=== PATIENT | female | born 1995 | race Caucasian/White ===

== ENCOUNTER 2017-03-04 10:35 | Inpatient (IN) | payer BC ==
[~2017-03-04] VITALS: Ht 160 cm; Wt 53.3 kg
[2017-03-04] MEDS ORDERED: NAPR500T3 PO (11:17)
[2017-03-04] MEDS ORDERED: MELA1TAB5 PO (11:17)
[2017-03-04] MEDS ORDERED: LEVE500T13 PO ×2 (11:17)
[2017-03-04] MEDS ORDERED: [UNRECOGNIZED DRUG - CODE] PO (11:17)
[2017-03-04] MEDS ORDERED: BIOTCAP2 PO (11:17)
[2017-03-04] MEDS ORDERED: CETI10TA84 PO (11:17)
[2017-03-04] MEDS ORDERED: MULT-240 PO (11:17)
[2017-03-04] MEDS ORDERED: CALCCAP15 PO (11:17)
[2017-03-04] MEDS ORDERED: CLON0.5T3 PO (11:17)
[2017-03-04] MEDS ORDERED: CHOL1000 PO (11:21)
[2017-03-04] MEDS ORDERED: CLON1TAB3 PO (11:21)
[2017-03-04 11:49] LABS: BASO % 0.1 %; BASO ABS # 0.02 K/uL (0-0.2); COMPLETE YES; EOS % 0.1 %; HEMATOCRIT 44.4 % (37-47); IG% 0.3 %; LYMPH % 5.3 %; LYMPH ABS # 0.92 K/uL (1.2-3.4); MEAN CELL VOLUME 89.7 fL (80-100); MEAN CORPUSCULAR HEMOGLOBIN 30.7 pg (25-34); MEAN CORPUSCULAR HGB CONC 34.2 g/dl (32-36); MEAN PLATELET VOLUME 9.3 fL (7.4-10.4); MONO % 7.2 %; PLATELET COUNT 295 K/uL (130-400); RED BLOOD COUNT 4.95 M/uL (4.2-5.4); WHITE BLOOD COUNT 17.24 K/uL (4.8-10.8)
[2017-03-04 11:58] LABS: BUN/CREATININE RATIO 13.1 (10-20); CALCIUM 8.9 mg/dl (8.5-10.1); CREATININE 0.87 mg/dl (0.60-1.20); POTASSIUM 3.3 mmol/L (3.5-5.1)
[2017-03-04 12:01] LABS: ALB/GLOB RATIO 0.9 (0.9-2)
[2017-03-04] MEDS ORDERED: ACETAMINOPHEN 500 MG TAB PO STA (12:18)
--- NOTE | 2017-03-04 12:35 | DIAGNOSTIC IMAGING REPORT ---
CHEST ONE VIEW PORTABLE HISTORY: 21 years-old Female fever acute fever with cough and headache COMPARISON: None available TECHNIQUE: Portable upright AP view of the chest FINDINGS: Cardiac silhouette is within normal limits. No pneumothorax, pleural effusion, focal airspace consolidation or overt pulmonary edema. Battery stimulator pack overlies the left chest with leads overlying the left upper hemithorax. Bones appear grossly intact. IMPRESSION: No acute cardiopulmonary process. The above report was generated using voice recognition software. It may contain grammatical, syntax or spelling errors. Electronically signed by: Diogo Gil M.D. 03/04/2017 12:34 PM Dictated Date/Time: 03/04/2017 12:33 PM
--- NOTE | 2017-03-04 12:43 | EMERGENCY ROOM VISIT NOTE ---
History Report prepared by Grant: Matthew Hamilton Under the Supervision of: Dr. Andrzej Law M.D. First contact with patient: 12:02 Chief Complaint: SEIZURE Stated Complaint: HIGH FEVER, HEADACHES, COUGH, SORE THROAT,SEIZURE Nursing Triage Summary: Pt states that she had a seizure this morning around 0800. Pt did take her medication today. Pt states that she does have a seizure disorder. Normally she has a seizure once a month. Since starting school the pt is having more seizures. Pt states that the seizures are also changing. She used to turn her head to the left but now is turning to the right. Over the last week the pt has also been sick. Pt states she has congestion, cough, and fever. History of Present Illness The patient is a 21 year old female who presents to the Emergency Room with complaints of episodic seizure that occurred four hours EXERCISE PHYSIOLOGIST CERTIFIED. She reports vomiting during her seizure. She notes that she has been sick for 6 weeks. She reports that she recently had pneumonia. She notes having a persistent fever and sore throat with a persistent cough. She has a history of seizures two to three times a month. She is on Banzel, Keppra, and Clonazepam daily for her seizures. She has gone to [facility] ([facility]) several times in the last month and was there today, but was advised to come to the ED. She notes her fevers have been 104.3, 101.0 over the last two days and today it was 99.0. Her roommate notes that her seizures have been abnormal and longer than usual, lasting three minutes at a time. The patient notes the [facility] had prescribed her penicillin and Omnicef, which she completed taking four days ago. She notes having a loss of appetite due to nausea, but states that she has been drinking fluids. She denies any abdominal pain, shortness of breath, incontinence. She notes that she was confused following the episode, and bit her tongue during it. Source of History: patient Onset: Four hours EXERCISE PHYSIOLOGIST CERTIFIED Position: other (generalized) Quality: other (seizure) Timing: other (episode) Associated Symptoms: + fevers, + sorethroat, + cough, No SOB, No abdominal pain Note: The patient denies incontinence. Review of Systems All systems have been listed, reviewed, and are negative other than those previously mentioned. Please see Additional Medical History Sheet. Past Medical & Surgical Medical Problems: (1) Asthma (2) Seizure Family History Diabetes mellitus FH: HTN (hypertension) FH: cancer FH: kidney disease FH: lung disease FHx: seizures Heart disease Social History Smoking Status: Never Smoker Smokeless Tobacco Use: No Alcohol Use: none Housing Status: lives with roommate Occupation Status: student Current/Historical Medications Scheduled Biotin (Biotin 5000), 1 CAP PO DAILY Calcium Carbonate-Cholecalcife (Calcium Plus Vitamin D3), 2 CAP PO DAILY Cetirizine (Zyrtec), 10 MG PO DAILY Cholecalciferol (Vitamin D3), 1 TAB PO DAILY Clonazepam (Klonopin), 0.5 MG PO HS Clonazepam (Klonopin), PO UD Levetiracetam (Keppra), 3 TAB PO QAM Levetiracetam (Keppra), 4 TAB PO QPM Multiple Vitamins W/ Minerals (Womens One Daily), 1 TAB PO DAILY Naproxen (Naproxen), 1 TAB PO BID Rufinamide (Banzel), 1 TAB PO UD Scheduled PRN Melatonin (Kp Melatonin), 1 TAB PO HS PRN for Sleep Allergies Coded Allergies: Azithromycin (Unverified Allergy, Severe, "SKIN FELT SUNBURNED", 03/04/17) Peanut (Unverified Allergy, Severe, ANAPHYLAXIS, 03/04/17) Physical Exam Vital Signs Date Time Temp Pulse Resp B/P (MAP) Pulse Ox O2 Delivery O2 Flow Rate FiO2 03/04/17 15:17 76 20 104/68 96 Room Air 03/04/17 12:23 109 19 98/67 98 Room Air 03/04/17 11:06 110 03/04/17 10:39 38.3 114 16 103/68 96 Room Air Physical Exam GENERAL: Patient awake, alert, oriented x 3. Patient follows commands. Patient does not appear toxic. Patient is adequately hydrated and well- nourished. SKIN: No erythema, pallor, cyanosis. Warm to touch. No rashes. HEENT: Normal head, pupils equal, reactive to light and accommodation. Ears normal. Significant pharyngeal erythema and pus to the oropharynx. Neck: Bilaterally cervical adenopathy, no neck vein distention. Bruise on left side of tongue. CHEST: Stimulator in left upper chest. LUNGS: Clear to auscultation. No wheezes, no rales, no rhonchi. HEART: No murmurs. No gallops. No rubs ABDOMEN: No masses, no rebound, no hepatomegaly or splenomegaly. EXTREMITIES: No signs of trauma. No pedal or pretibial edema. No calf or thigh tenderness. SKIN: Warm to touch. No rashes. NEUROLOGIC: Cranial nerves II-XII within normal limits. No gross motor sensory function deficits. Medical Decision & Procedures ER Provider Diagnostic Interpretation: X ray results are stated below per my interpretation and the radiologist's interpretation. CHEST ONE VIEW PORTABLE FINDINGS: Cardiac silhouette is within normal limits. No pneumothorax, pleural effusion, focal airspace consolidation or overt pulmonary edema. Battery stimulator pack overlies the left chest with leads overlying the left upper hemithorax. Bones appear grossly intact. IMPRESSION: No acute cardiopulmonary process. The above report was generated using voice recognition software. It may contain grammatical, syntax or spelling errors. Electronically signed by: Diogo Gil M.D. 03/04/2017 12:34 PM Laboratory Results 03/04/17 11:00 Red Blood Count 4.95, Mean Corpuscular Volume 89.7, Mean Corpuscular Hemoglobin 30.7, Mean Corpuscular Hemoglobin Concent 34.2, Mean Platelet Volume 9.3, Neutrophils (%) (Auto) 87.0, Lymphocytes (%) (Auto) 5.3, Monocytes (%) (Auto) 7.2, Eosinophils (%) (Auto) 0.1, Basophils (%) (Auto) 0.1, Neutrophils # (Auto) 14.99, Lymphocytes # (Auto) 0.92, Monocytes # (Auto) 1.24, Eosinophils # (Auto) 0.01, Basophils # (Auto) 0.02 03/04/17 11:00 Test 03/04/17 11:00 03/04/17 14:05 03/04/17 14:30 03/04/17 16:18 White Blood Count 17.24 K/uL (4.8-10.8) Red Blood Count 4.95 M/uL (4.2-5.4) Hemoglobin 15.2 g/dL (12.0-16.0) Hematocrit 44.4 % (37-47) Mean Corpuscular Volume 89.7 fL (80-100) Mean Corpuscular Hemoglobin 30.7 pg (25-34) Mean Corpuscular Hemoglobin Concent 34.2 g/dl (32-36) Platelet Count 295 K/uL (130-400) Mean Platelet Volume 9.3 fL (7.4-10.4) Neutrophils (%) (Auto) 87.0 % Lymphocytes (%) (Auto) 5.3 % Monocytes (%) (Auto) 7.2 % Eosinophils (%) (Auto) 0.1 % Basophils (%) (Auto) 0.1 % Neutrophils # (Auto) 14.99 K/uL (1.4-6.5) Lymphocytes # (Auto) 0.92 K/uL (1.2-3.4) Monocytes # (Auto) 1.24 K/uL (0.11-0.59) Eosinophils # (Auto) 0.01 K/uL (0-0.5) Basophils # (Auto) 0.02 K/uL (0-0.2) RDW Standard Deviation 41.0 fL (36.4-46.3) RDW Coefficient of Variation 12.6 % (11.5-14.5) Immature Granulocyte % (Auto) 0.3 % Immature Granulocyte # (Auto) 0.06 K/uL (0.00-0.02) Anion Gap 9.0 mmol/L (3-11) Est Creatinine Clear Calc Drug Dose 86.0 ml/min Estimated GFR () 111.9 Estimated GFR (Non- 96.6 BUN/Creatinine Ratio 13.1 (10-20) Calcium Level 8.9 mg/dl (8.5-10.1) Total Bilirubin 0.3 mg/dl (0.2-1) Aspartate Amino Transf (AST/SGOT) 22 U/L (15-37) Alanine Aminotransferase (ALT/SGPT) 25 U/L (12-78) Alkaline Phosphatase 84 U/L (45-117) Total Protein 9.3 gm/dl (6.4-8.2) Albumin 4.5 gm/dl (3.4-5.0) Globulin 4.8 gm/dl (2.5-4.0) Albumin/Globulin Ratio 0.9 (0.9-2) Monoscreen NEG (NEG) Urine Color YELLOW Urine Appearance CLEAR (CLEAR) Urine pH 6.5 (4.5-7.5) Urine Specific [place] 1.017 (1.000-1.030) Urine Protein NEG (NEG) Urine Glucose (UA) NEG (NEG) Urine Ketones NEG (NEG) Urine Occult Blood TRACE (NEG) Urine Nitrite NEG (NEG) Urine Bilirubin NEG (NEG) Urine Urobilinogen NEG (NEG) Urine Leukocyte Esterase SMALL (NEG) Urine WBC (Auto) 5-10 /hpf (0-5) Urine RBC (Auto) 5-10 /hpf (0-4) Urine Hyaline Casts (Auto) 1-5 /lpf (0-5) Urine Epithelial Cells (Auto) >30 /lpf (0-5) Urine Bacteria (Auto) NEG (NEG) Urine Renal Epithelial Cells 0-5 /lpf (0-5) Urine Yeast (Auto) PRESENT (NONE PRSENT) Urine Test NEG (NEG) CSF Color COLORLESS CSF Appearance CLEAR CSF WBC 0 /uL (0-5) CSF RBC 0 /uL (0) CSF Xanthrochromic NO XANTHOCHROMIA CSF Cell Count Tube # 4 CSF Glucose 58 mg/dl (40-70) CSF Total Protein 30.1 mg/dl (15.0-45.0) Laboratory results as stated above per my review. Medications Administered Medications (Trade) Dose Ordered Sig/Prasanth Route Start Time Stop Time Status Last Admin Dose Admin Acetaminophen (Tylenol Tab) 1,000 mg NOW STAT PO 03/04/17 12:18 03/04/17 12:19 DC 03/04/17 12:24 1,000 MG Procedure Lumbar Puncture Indication: fever, headache, elevated WBC, and seizure Verbal consent was obtained after the risks and benefits were explained, including but not limited to headache, bleeding/clotting, scarring, infection, pain, and bone/joint/nerve damage. At this time, the risks of the procedure are less than the risks of NOT performing the procedure. The patient was placed in the left lateral decubitus position and the back was prepped with Betadine and draped in the standard fashion. The L3 intervertebral space was identified, anesthetized locally with 1% lidocaine without epinephrine. A 22G Sprotte spinal needle was inserted through the skin with the bevel parallel to the dural fibers. The needle was carefully advanced into the lumbar cistern, but no fluid was obtained; therefore, a 20G regular needle was used and 4 tubes of clear, colorless CSF was obtained. Opening pressure was 9cm of water and closing pressure was 8.5 cm of water. The stylet was replaced and the needle was removed. A bandaid was placed and the patient was placed in the supine position. The patient tolerated the procedure well and there were no complications. ED Course 1202: Past medical records reviewed. The patient was evaluated in room C9. A complete history and physical examination was performed. 1219: Ordered Tylenol 1,000 mg PO 1354 I reassessed the patient at this time. She is feeling better and resting comfortably. 1406: I performed a lumbar puncture on the patient. Please see procedural note. Medical Decision Nurses notes reviewed. Medical history sheet reviewed. Differential diagnosis includes but is not limited to: viral infection, bacterial infection: PNA, Streptococcus pharyngitis, mononucleosis, and seizure disorder. The patient arrives here with fever elevated white count and a seizure this morning. She does have an underlying seizure disorder. Patient also complained of a significant headache and very sore throat. Strep test was negative although she was on antibiotics up to 4 days ago. Chest x-ray does not reveal pneumonia. Lumbar puncture was performed to rule out the possibility of meningitis/encephalitis especially in light of her high fever or white count and seizure this morning. Patient continued to have significant distress. She was given IV fluids and IV doxycycline as per request of the hospitalist. The patient will be further evaluated in the hospital. Medication Reconcilliation Current Medication List: was personally reviewed by me Blood Pressure Screening Patient's blood pressure: Normal blood pressure Blood pressure disposition: Did not require urgent referral Consults Time Called: 1620 Consulting Physician: Kindra Returned Call: [phone] Start patient on IV doxycycline. Impression Primary Impression: Leukocytosis Additional Impressions: Fever Pharyngitis Hypokalemia Scribe Attestation The scribe's documentation has been prepared under my direction and personally reviewed by me in its entirety. I confirm that the note above accurately reflects all work, treatment, procedures, and medical decision making performed by me. Departure Information Referrals No Doctor, Assigned (PCP) Patient Instructions My [facility] Problem Qualifiers
[2017-03-04 14:28] LABS: URINE APPEARANCE CLEAR (CLEAR); URINE BILIRUBIN NEG (NEG); URINE COLOR YELLOW; URINE EPITHELIAL CELL AUTO >30 /lpf (0-5); URINE NITRITE NEG (NEG); URINE PH 6.5 (4.5-7.5); URINE SPECIFIC GRAVITY 1.017 (1.000-1.030); UROBILINOGEN NEG (NEG); ZZUR CULT IF INDIC CLEAN CATCH YES
[2017-03-04 14:29] LABS: MANUAL MICROSCOPIC REQUIRED? NO; REVIEW REQ? YES
[2017-03-04 15:09] LABS: CSF APPEARANCE CLEAR; CSF COLOR COLORLESS; CSF XANTHOCHROMIC NO XANTHOCHROMIA
[2017-03-04 15:24] LABS: CSF TOTAL PROTEIN 30.1 mg/dl (15.0-45.0)
[2017-03-04] MEDS ORDERED: SODIUM CHLORIDE 0.9% 1000ML 1,000 ML IV ONE (16:30)
[2017-03-04] MEDS ORDERED: DOXYCYCLINE IV 100 MG in DEXTROSE 5% 100ML 100 ML IV ONE (16:30)
[2017-03-04 16:59] VITALS: O2SAT 97; Ht 160 cm; Wt 53.3 kg
[2017-03-04] MEDS ORDERED: ALUMINUM/MAGNESIUM/SIMETH (MAALOX MAX) 30 ML UDC PO PRN (18:30)
[2017-03-04] MEDS ORDERED: POLYETHYLENE (MIRALAX) 17 GM PACK PO PRN (18:30)
[2017-03-04] MEDS ORDERED: MAGNESIUM HYDROXIDE SUSP 30 ML UDC PO PRN (18:30)
[2017-03-04] MEDS ORDERED: ONDANSETRON INJ 2 MG/ML 2 ML VIAL IV PRN (18:30)
[2017-03-04] MEDS ORDERED: OPTIRAY 320 IV PRN (18:45)
[2017-03-04] MEDS ORDERED: POLY335019 PO (18:56)
[2017-03-04] MEDS ORDERED: MIRT15TA3 PO (18:56)
[2017-03-04] MEDS ORDERED: LEVO50TA PO (18:56)
[2017-03-04] MEDS ORDERED: RUFI400T PO (18:56)
[2017-03-04] MEDS ORDERED: VENL75CA PO (18:56)
[2017-03-04] MEDS ORDERED: SYMIN/8045 INH (18:56)
[2017-03-04] MEDS ORDERED: MRN25 PO (18:56)
[2017-03-04] MEDS ORDERED: MONT1TAB3 PO (18:56)
[2017-03-04] MEDS ORDERED: LEVOIUD (18:56)
--- NOTE | 2017-03-04 18:57 | History and Physical ---
History & Physical Date & Time of Service: Mar 04, 2017 at 18:57 Chief Complaint: High Fever, Headaches, Cough, Sore Throat,Seizure Primary Care Physician: [facility] History of Present Illness Source: patient, friend (roommate) Ms. 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 Patient normally has seizures monthly however now has them approx 3-4 times a month since starting school. She does report that sleep deprivation and stress increases her seizures which correlates with being a college student. She had a seizure around 0800 this AM and lasted approx. 3 minutes per roommate. Had associated vomiting and did bite her tongue. She states that post-ictal state was more prolonged then what she has seen this patient have in the past. It was approximately 30-45 minutes but she was more confused then she normally is. She appeared to have a glazed-over look and they were concerned she might have another seizure. Roommate states she has not had status epilepticus that she has witnessed. Patient and roommate state that the seizures have been changing with the example of her head turns to the right now instead of the left. Patient states the majority of her seizures are grand mal but does occ. have partial seizures that she is aware of. She follows with [facility] for her neurologist (Dr. Gaxiola and Dr. Arrington). She resides in [place], [place]. She had a VNS placed prior to arriving to school and reports it appears to be pushing into her skin more and does cause some discomfort. She is currently on Banzel, Keppra, and Clonazepam. She reports her Banzel was increased approx 1 week ago to 800 mg in AM and 1200 mg PM. She reports having a URI including cough and sore throat x 6 weeks. Also complaining of generalized fatigue and body aches. She has noticed fevers over the past month but more specifically over the past three days. Max temp was 104.3 and today was 99. She was recently treated with a course of Penicillin and Omnicef for presumed pneumonia but continues to have fevers. Completed Abx could x 4 days ago. She does have associated poor appetite due to nausea. She chronically has had issues gaining weight and has been on Marinol PRN. Roommates at bedside and avoided asking if she has had any underlying eating disorders. Past Medical/Surgical History 1. Seizure Disorder 2. Hypothyroidism 3. Anxiety/Depression 4. Poor Appetite/Poor Weight Gain 5. Asthma Family History Diabetes mellitus FH: HTN (hypertension) FH: cancer FH: kidney disease FH: lung disease FHx: seizures Heart disease Social History Smoking Status: Never Smoker Smokeless Tobacco Use: No Alcohol Use: none Drug Use: none Occupational Status: student Allergies Coded Allergies: Azithromycin (Unverified Allergy, Severe, "SKIN FELT SUNBURNED", 03/04/17) Peanut (Unverified Allergy, Severe, ANAPHYLAXIS, 03/04/17) Home Medications Scheduled Biotin (Biotin 5000), 1 CAP PO DAILY Budesonide/Formoterol Fumarate (Symbicort 80/4.5 Inhaler), 2 PUFFS INH BID Calcium Carbonate-Cholecalcife (Calcium Plus Vitamin D3), 2 CAP PO DAILY Cetirizine (Zyrtec), 10 MG PO DAILY Cholecalciferol (Vitamin D3), 1 TAB PO DAILY Clonazepam (Klonopin), 0.5 MG PO HS Clonazepam (Klonopin), PO UD Levetiracetam (Keppra), 3 TAB PO QAM Levetiracetam (Keppra), 4 TAB PO QPM Levothyroxine Sodium (Synthroid), 75 MCG PO DAILY Mirtazapine (Remeron), 1 TAB PO HS Montelukast Sodium (Singulair), 1 TAB PO DAILY Multiple Vitamins W/ Minerals (Womens One Daily), 1 TAB PO DAILY Naproxen (Naproxen), 1 TAB PO BID Polyethylene Glycol 3350 (Miralax), 17 GM PO DAILY Rufinamide (Banzel), 800 MG PO DAILY Rufinamide (Banzel), 1,200 MG PO DAILY Scheduled PRN Dronabinol (Dronabinol), 5 MG PO BID PRN for Appetite Stimulation Melatonin (Kp Melatonin), 1 TAB PO HS PRN for Sleep Miscellaneous Medications Levonorgestrel (Iud) (Mirena) Review of Systems Constitutional: + fever, + chills, + sweats, + weakness, + fatigue ENT: + nasal symptoms, + sore throat, No trouble swallowing Respiratory: + cough, No shortness of breath Cardiovascular: No chest pain, No palpitations Abdomen: + nausea, + vomiting, No pain, No diarrhea, No constipation, No GI bleeding Musculoskeletal: No swelling, No calf pain Genitourinary - Female: No dysuria Hematologic / Lymphatic: No abnormal bleeding/bruising Integumentary: No rash, No new/changing skin lesions Physical Exam Vital Signs Date Time Temp Pulse Resp B/P (MAP) Pulse Ox O2 Delivery O2 Flow Rate FiO2 03/04/17 17:07 90 20 100/60 97 Room Air 03/04/17 16:59 97 Room Air 03/04/17 15:17 76 20 104/68 96 Room Air 03/04/17 12:23 109 19 98/67 98 Room Air 03/04/17 11:06 110 03/04/17 10:39 38.3 114 16 103/68 96 Room Air General Appearance: no apparent distress, + thin, + pertinent finding ( lethargic but easily awakens) Head: normocephalic, atraumatic Eyes: normal inspection, PERRL, EOMI ENT: hearing grossly normal, + pharyngeal erythema, + tonsillar exudate Neck: supple, no JVD, trachea midline Respiratory/Chest: lungs clear, normal breath sounds, no respiratory distress, no accessory muscle use Cardiovascular: regular rate, rhythm, no gallop, no murmur Abdomen/GI: normal bowel sounds, non tender, soft Extremities/Musculoskelatal: no calf tenderness, no pedal edema Neurologic/Psych: alert, oriented x 3, + pertinent finding (drowsy) Skin: normal color, + pertinent finding (clammy) Lymphatic: + cervical node abnormality Diagnostics Laboratory Results Results Past 24 Hours Test 03/04/17 11:00 03/04/17 14:05 03/04/17 14:30 Range/Units White Blood Count 17.24 4.8-10.8 K/uL Red Blood Count 4.95 4.2-5.4 M/uL Hemoglobin 15.2 12.0-16.0 g/dL Hematocrit 44.4 37-47 % Mean Corpuscular Volume 89.7 80-100 fL Mean Corpuscular Hemoglobin 30.7 25-34 pg Mean Corpuscular Hemoglobin Concent 34.2 32-36 g/dl Platelet Count 295 130-400 K/uL Mean Platelet Volume 9.3 7.4-10.4 fL Neutrophils (%) (Auto) 87.0 % Lymphocytes (%) (Auto) 5.3 % Monocytes (%) (Auto) 7.2 % Eosinophils (%) (Auto) 0.1 % Basophils (%) (Auto) 0.1 % Neutrophils # (Auto) 14.99 1.4-6.5 K/uL Lymphocytes # (Auto) 0.92 1.2-3.4 K/uL Monocytes # (Auto) 1.24 0.11-0.59 K/uL Eosinophils # (Auto) 0.01 0-0.5 K/uL Basophils # (Auto) 0.02 0-0.2 K/uL RDW Standard Deviation 41.0 36.4-46.3 fL RDW Coefficient of Variation 12.6 11.5-14.5 % Immature Granulocyte % (Auto) 0.3 % Immature Granulocyte # (Auto) 0.06 0.00-0.02 K/uL Sodium Level 134 136-145 mmol/L Potassium Level 3.3 3.5-5.1 mmol/L Chloride Level 99 98-107 mmol/L Carbon Dioxide Level 26 21-32 mmol/L Anion Gap 9.0 3-11 mmol/L Blood Urea Nitrogen 11 7-18 mg/dl Creatinine 0.87 0.60-1.20 mg/dl Est Creatinine Clear Calc Drug Dose 86.0 ml/min Estimated GFR () 111.9 Estimated GFR (Non- 96.6 BUN/Creatinine Ratio 13.1 10-20 Random Glucose 89 70-99 mg/dl Calcium Level 8.9 8.5-10.1 mg/dl Total Bilirubin 0.3 0.2-1 mg/dl Aspartate Amino Transf (AST/SGOT) 22 15-37 U/L Alanine Aminotransferase (ALT/SGPT) 25 12-78 U/L Alkaline Phosphatase 84 45-117 U/L Total Protein 9.3 6.4-8.2 gm/dl Albumin 4.5 3.4-5.0 gm/dl Globulin 4.8 2.5-4.0 gm/dl Albumin/Globulin Ratio 0.9 0.9-2 Lyme Disease IgG Antibody NEG NEG Monoscreen NEG NEG Urine Color YELLOW Urine Appearance CLEAR CLEAR Urine pH 6.5 4.5-7.5 Urine Specific [place] 1.017 1.000-1.030 Urine Protein NEG NEG Urine Glucose (UA) NEG NEG Urine Ketones NEG NEG Urine Occult Blood TRACE NEG Urine Nitrite NEG NEG Urine Bilirubin NEG NEG Urine Urobilinogen NEG NEG Urine Leukocyte Esterase SMALL NEG Urine WBC (Auto) 5-10 0-5 /hpf Urine RBC (Auto) 5-10 0-4 /hpf Urine Hyaline Casts (Auto) 1-5 0-5 /lpf Urine Epithelial Cells (Auto) >30 0-5 /lpf Urine Bacteria (Auto) NEG NEG Urine Renal Epithelial Cells 0-5 0-5 /lpf Urine Yeast (Auto) PRESENT NONE PRSENT Urine Test NEG NEG CSF Color COLORLESS CSF Appearance CLEAR CSF WBC 0 0-5 /uL CSF RBC 0 0 /uL CSF Xanthrochromic NO XANTHOCHROMIA CSF Cell Count Tube # 4 CSF Glucose 58 40-70 mg/dl CSF Total Protein 30.1 15.0-45.0 mg/dl Microbiology Results 03/04/17 Gram Stain - Final, Resulted 03/04/17 CSF Culture, Resulted Pending 03/04/17 Group A Streptococcus Screen - Final, Resulted SPECIMEN NEGATIVE FOR GROUP A BETA ST... 03/04/17 Group A Streptococcus Screen (JOANA), Resulted Pending 03/04/17 Urine Culture, Received Pending Diagnostic Radiology CHEST ONE VIEW PORTABLE HISTORY: 21 years-old Female fever acute fever with cough and headache COMPARISON: None available TECHNIQUE: Portable upright AP view of the chest FINDINGS: Cardiac silhouette is within normal limits. No pneumothorax, pleural effusion, focal airspace consolidation or overt pulmonary edema. Battery stimulator pack overlies the left chest with leads overlying the left upper hemithorax. Bones appear grossly intact. IMPRESSION: No acute cardiopulmonary process. Impression Assessment and Plan Ms. 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 Fever and Leukocytosis of Unknown Etiology: Sepsis by Criteria - Possible Viral? - Reporting fevers/chills x 1 month but worse over past couple days; URI symptoms x 6 months; Denies rash or tick exposure; no travel outside the [place] - Finished a course of Penicillin and Omnicef without resolution of symptoms - Throat is extremely erythematous and exudative - LP so far unremarkable - Mother states Alicia-Karimi + on labs from a couple weeks ago - Doxycycline 100 mg IV BID - CT neck and chest - R/O abscess or explanation for ongoing issues - Consult ID - appreciate recommendations Seizure Disorder S/P VNS: Follows with [facility] - Dr. Suzette Gaxiola and Dr Longoria - will request records from last visit - Clonazepam 0.5 mg HS and 1 mg PRN for seizure aura - Keppra 1500 mg AM and 2000 PM and Banzel 800 mg AM and 1200 mg PM (roommate to bring in medication) - Discussed with mother - she is concerned for her to be left alone when she has these seizures and would like a sitter if roommate or friends not nearby Asthma without Exacerbation: - Symbicort 2 puffs BID - Zyrtec 10 mg daily Poor Appetite/Poor Weight Gain: - Did not discuss H/O eating disorders as possible etiology as roommate and friend at bedside - Marinol 5 mg BID PRN Anxiety/Depression: - Effexor 125 mg daily and Remeron 15 mg HS DVT Prophylaxis: Ambulation Code Status: FULL RESUSCITATION Disposition: - [employer] Student - has roommate and reports limited time alone and normally with someone in case of seizures - Discussed with her mother - patient had blood tests a couple weeks ago the was +Alicia-Karimi but neg. mono the patient has lab results on her phone 21 y/o F with complex seizure disorder presents with fevers for > 1 month, throat pain and exudates and following a breakthrough seizure. She has tested negative for Strep and [place] thus far and his had 2 antibiotic courses to include Omnicef and Amoxy She has a vagal stimulator which was placed at the [facility] due to her seizure disorder. She does decribe a persistent cough which has also been present for one month OE AAO x 3 S1,2 R CTAB NT, ND No CCE No deficits there are extensive exudates on her pharynges P: Due to her ongoing fevers and lack of antibiotic response we will obtain a CT of the neck and chest to r/o abscess or identify an additional source - this would also allow assessment of any possible complication relating to her stimulator She will be kept on seizure precautions and cont her home meds - with continuing breakthrough seizures we may need to contact her primary neurologist due to the complexity of her disorder. Results of her imaging are oending at the time of admission ID has been consulted Level of Care Med/Surg Advanced Directives Existing Living Will: No Existing Power of Packaging Assembler: No Resuscitation Status FULL RESUSCITATION VTE Prophylaxis VTE Risk Assessment Done? Y/N: Yes Risk Level: Low Given or contraindicated: SCD's
[2017-03-04] MEDS ORDERED: NON-FORMULARY MEDICATION SCH (19:15)
[2017-03-04] MEDS ORDERED: DRONABINOL 2.5 MG CAP PO PRN (19:15)
[2017-03-04] MEDS ORDERED: CLONAZEPAM 1 MG TAB PO PRN (19:15)
[2017-03-04 20:00] VITALS: BP 118/70; PULSE 93; TEMP 38; O2SAT 98
[2017-03-04] MEDS ORDERED: INFLUENZA VIRUS QUAD VACCINE 0.5 ML SYR IM. ONE (20:00)
[2017-03-04] MEDS ORDERED: INFLUENZA ADMINISTRATION CHARGE ONE (20:00)
[2017-03-04] MEDS ORDERED: IV FLUIDS COMPLETED PRN (20:00)
[2017-03-04 21:30] LABS: CSF CHEMISTRY TUBE # 2
--- NOTE | 2017-03-04 21:56 | DIAGNOSTIC IMAGING REPORT ---
CT SCAN OF THE NECK WITH IV CONTRAST CLINICAL HISTORY: Sore throat of one month's duration. COMPARISON STUDY: No priors. TECHNIQUE: Following the IV administration of 92 cc of Optiray 320, CT scan of the soft tissues of the neck was performed from the skull base to the upper chest. Images are reviewed in the axial, sagittal, and coronal planes. IV contrast was administered without complication. A dose lowering technique was utilized adhering to the principles of ALARA. CT DOSE: 288.86 mGy.cm FINDINGS: Soft tissues: An electronic device is present in the left upper chest. The lead extends into the left neck. Pharynx: There is thickening and edema with mucosal hyperemia involving the pharyngeal soft tissues. There are tonsils are enlarged and heterogeneous. The appearance is consistent with a nonspecific pharyngitis/tonsillitis. No collection is seen to indicate abscess. The epiglottis is normal. There is mild edema of the retropharyngeal soft tissues. The pharyngeal airway is widely patent. There is no evidence of mass lesion. The vocal cords are symmetric. The parapharyngeal fat is well maintained. Lymphadenopathy: Mildly enlarged cervical lymph nodes measure up to 1.6 cm in length. A left cervical chain node on image #78 measures 1.8 cm in length. Thyroid: Normal in size and attenuation. Salivary glands: The parotid and submandibular glands are within normal limits. Brain parenchyma: The visualized brain parenchyma at the skull base is normal in appearance. Vascular structures: The carotid arteries and jugular veins are widely patent bilaterally. Skeletal structures: Imaged portions of the calvarium at the skull base are within normal limits. The cervical spine appears intact. Orbits: The bony orbits are intact. Orbital contents are normal in appearance. Sinuses and mastoids: Trace mucosal thickening is seen in the maxillary antra. The remaining paranasal sinuses are clear. The mastoid air cells are well pneumatized. Lung apices: Visualized apical lung parenchyma is clear. IMPRESSION: 1. Findings are consistent with a nonspecific tonsillitis/pharyngitis. There is also mild edema of the retropharyngeal soft tissues. No organized fluid collection is seen to indicate abscess. 2. Mildly enlarged cervical lymph nodes are likely on a reactive basis. Electronically signed by: Dominick Lowry M.D. 03/04/2017 9:54 PM Dictated Date/Time: 03/04/2017 9:48 PM
--- NOTE | 2017-03-04 21:59 | DIAGNOSTIC IMAGING REPORT ---
CT SCAN OF THE CHEST WITH IV CONTRAST CLINICAL HISTORY: Fever for months duration. Upper respiratory infection symptoms. COMPARISON STUDY: Chest x-ray dated 03/04/2017. TECHNIQUE: Following the IV administration of 92 cc of Optiray 320, CT scan of the thorax was performed from the thoracic inlet to the upper abdomen. Images are reviewed in the axial, sagittal, and coronal planes. IV contrast was administered without complication. A dose lowering technique was utilized adhering to the principles of ALARA. Evaluation of the upper chest is degraded by streak artifact from the patient's shoulders. CT DOSE: Reported separately and the concurrently performed CT scan of the neck. FINDINGS: Soft tissues: An electronic device is present in the left chest wall. A lead extends into the left neck. Thyroid: Imaged portions of the thyroid gland are normal in size and attenuation. Thoracic aorta: The thoracic aorta is normal in caliber and demonstrates standard 3-vessel arch anatomy. No dissection is seen. Pulmonary vasculature: The pulmonary trunk is normal in caliber. There are no filling defects identified in the central pulmonary vessels to indicate pulmonary embolus. Note that this examination was not protocoled for evaluation of the pulmonary arteries. Heart: The heart is normal in size and configuration, and without pericardial effusion. Lungs and pleural spaces: There is mild patchy groundglass change present in the lower lobes bilaterally, left greater than right. This likely represents an infectious/inflammatory pneumonitis. No lobar consolidation or pleural effusion is seen. The trachea and central airways are clear. Mediastinum: There is no mediastinal lymphadenopathy. Joceline: Clear. Axillae: There is no axillary lymphadenopathy. Upper abdomen: Partially visualized upper abdominal viscera is within normal limits. Skeletal structures: No lytic or blastic bony lesions are seen. IMPRESSION: There is mild patchy groundglass change present in the lower lobes bilaterally. This is consistent with a nonspecific infectious/inflammatory pneumonitis. Electronically signed by: Dominick Lowry M.D. 03/04/2017 9:58 PM Dictated Date/Time: 03/04/2017 9:54 PM
[2017-03-04] MEDS: SODIUM CHLORIDE 0.9% 1000ML 1,000 ML IV SCH (22:13)
[2017-03-04] MEDS: RUFINAMIDE PO SCH (22:17)
[2017-03-04] MEDS: BUDESONIDE/FORMOTEROL FUMARATE 80/4.5 60 PUFFS/INHALER INH SCH (22:17)
[2017-03-04] MEDS: LEVETIRACETAM 500 MG TAB PO SCH (22:18)
[2017-03-04] MEDS: MIRTAZAPINE TAB 15 MG TAB PO SCH (22:19)
[2017-03-04] MEDS: ACETAMINOPHEN 325 MG TAB PO PRN (22:20)
[2017-03-04] MEDS: CLONAZEPAM 0.5 MG TAB PO SCH (22:22)
[2017-03-04 22:28] VITALS: TEMP 39.3
[2017-03-04 23:48] VITALS: BP 110/54; PULSE 127; TEMP 37.1; O2SAT 93
[2017-03-04 23:56] LABS: INFLUENZA A PCR Neg for Influ A (NEG); INFLUENZA B PCR Neg for Influ B (NEG)
[2017-03-05] VITALS (7 sets, daily range): BP systolic 97–108; BP diastolic 41–61; PULSE 98–114; TEMP 36.9–38.1; O2SAT 96–99
[2017-03-05] MEDS: LEVOTHYROXINE 75 MCG TAB PO SCH (06:12)
[2017-03-05] MEDS: SODIUM CHLORIDE 0.9% 1000ML 1,000 ML IV SCH ×2 (06:21→11:48)
[2017-03-05 06:30] LABS: HEMATOCRIT 36.5 % (37-47); MEAN CELL VOLUME 90.6 fL (80-100); MEAN CORPUSCULAR HEMOGLOBIN 29.8 pg (25-34); MEAN CORPUSCULAR HGB CONC 32.9 g/dl (32-36); MEAN PLATELET VOLUME 9.1 fL (7.4-10.4); PLATELET COUNT 210 K/uL (130-400); RED BLOOD COUNT 4.03 M/uL (4.2-5.4); WHITE BLOOD COUNT 13.29 K/uL (4.8-10.8)
[2017-03-05 06:57] LABS: BLOOD UREA NITROGEN 5 mg/dl (7-18); BUN/CREATININE RATIO 8.8 (10-20); CALCIUM 7.6 mg/dl (8.5-10.1); CARBON DIOXIDE 23 mmol/L (21-32); CHLORIDE 105 mmol/L (98-107); CREATININE 0.62 mg/dl (0.60-1.20); GLUCOSE 82 mg/dl (70-99); POTASSIUM 3.3 mmol/L (3.5-5.1); SODIUM 137 mmol/L (136-145)
[2017-03-05] MEDS: DOXYCYCLINE IV 100 MG in DEXTROSE 5% 100ML 100 ML IV SCH ×2 (08:20→20:14)
[2017-03-05] MEDS: ACETAMINOPHEN 325 MG TAB PO PRN ×2 (08:22→16:03)
[2017-03-05] MEDS: BUDESONIDE/FORMOTEROL FUMARATE 80/4.5 60 PUFFS/INHALER INH SCH ×2 (08:46→20:14)
[2017-03-05] MEDS: CEROVITE ADV FORMULA TAB PO SCH (08:47)
[2017-03-05] MEDS: CETIRIZINE HCL 10 MG TAB PO SCH (08:47)
[2017-03-05] MEDS: RUFINAMIDE 800 MG PO SCH (08:47)
[2017-03-05] MEDS: LEVETIRACETAM 500 MG TAB PO SCH ×2 (08:47→20:15)
[2017-03-05] MEDS: MONTELUKAST SOD 10 MG TAB PO SCH (08:47)
[2017-03-05] MEDS ORDERED: VENLAFAXINE HCL XR 75 MG CAPXR PO SCH (09:00)
[2017-03-05] MEDS ORDERED: PIPERACILL/TAZOBAC CONSULT ACTIVE PRN (11:45)
[2017-03-05] MEDS ORDERED: VANCOMYCIN CONSULT ACTIVE PRN (11:45)
[2017-03-05] MEDS ORDERED: PIPERACILL/TAZOBAC IV 3.375 GM in DEXTROSE 5% 100ML 100 ML IV SCH (12:00)
[2017-03-05] MEDS ORDERED: VANCOMYCIN INJ 1,500 MG in SODIUM CHLORIDE 0.9% 500ML 500 ML IV SCH (12:00)
[2017-03-05] MEDS ORDERED: POTASSIUM CHLORIDE 20 MEQ TABCR PO ONE (13:30)
--- NOTE | 2017-03-05 14:40 | Pharmacy Progress Note ---
Pharmacy Abx Initial Consult Date of Service Mar 05, 2017. Pharmacy Dosing Scope Date of Consult: 03/05/17 Pharmacy is consulted to initiate Vancomycin/Zosyn IV dosing therapy, order appropriate labs and adjust drug dose/frequency. Subjective The patient is a 21 year old female admitted on Mar 04, 2017 at 18:38 with ongoing fevers and seizures. Objective Height (Feet): 5 Height (Inches): 3.00 Weight (Kilograms): 56.000 Vital Signs (Past 12Hrs) Vital Signs Past 12 Hours Date Time Temp Pulse Resp B/P (MAP) Pulse Ox O2 Delivery O2 Flow Rate FiO2 03/05/17 12:00 Room Air 03/05/17 11:28 37.5 99 16 102/56 (71) 98 Room Air 03/05/17 08:00 Room Air 03/05/17 07:38 38.1 114 18 98/41 (60) 96 Room Air 03/05/17 04:00 98 Room Air 03/05/17 03:51 36.9 100 18 100/56 (71) 99 Room Air Lab Results (24Hrs) Laboratory Tests (24 Hours) Test 03/05/17 05:49 03/05/17 11:10 White Blood Count 13.29 K/uL (4.8-10.8) H Lactic Acid Level 2.7 mmol/L (0.4-2.0) *H Micro Results Date/Time Source Procedure Growth Status 03/05/17 10:34 Blood Blood Culture Pending Received 03/05/17 10:30 Blood Blood Culture Pending Received 03/04/17 14:30 Cerebral Spinal Fluid Gram Stain - Final Resulted 03/04/17 14:30 Cerebral Spinal Fluid CSF Culture - Preliminary NO GROWTH TO DATE. Resulted 03/04/17 12:15 Throat Group A Streptococcus Screen - Final SPECIMEN NEGATIVE FOR GROUP A BETA ST... Resulted 03/04/17 12:15 Throat Group A Streptococcus Screen (JOANA) - Preliminary NO BETA STREP ISOLATED TO DATE. Resulted 03/05/17 10:15 Urine , Clean Catch Urine Culture Pending Received 03/04/17 14:05 Urine , Clean Catch Urine Culture - Preliminary NO GROWTH - LESS THAN 1,000 COLONIES/... Resulted Risk Factors for Resistance * Antimicrobial use within the last 90 days: PCN; Omnicef Assessment & Plan Assessment 21 year old female admitted with sepsis - unknown source, initiated on Vancomycin, Zosyn and Doxycycline IV. Blood, urine, CSF cultures pending. ID consulted. Pt recently finished a combination of oral antibiotics for URI/pneumonia, but notes fevers never resolved and have been occurring for the past month. Plan Vancomycin * Loading dose: 1500 mg (26 mg/kg) * Maintenance dose: 1000 mg IV (18 mg/kg) every 8 hours * Goal trough level for sepsis (unknown origin): 15 to 20 mcg/mL * Trough level ordered for 03/06/17 @1930 prior to 2000 dose. * Aggressive dosing selected to begin with, may need to pull back once steady state reached. Piperacillin/tazobactam * 3.375 g bolus administered over 30 minutes, then 3.375 g IV extended infusion every 8 hours for CrCl greater than 20 mL/min Doxycycline * 100 mg IV every 12 hours (not a consult) Pharmacy will continue to follow and will adjust dose/frequency as necessary. Thank you.
--- NOTE | 2017-03-05 15:58 | Medical Consult ---
Consultation Date of Consultation: Mar 05, 2017. Attending Physician: Abdi Hanson MD Reason for Consultation: Fever for 1 month, URI for 6 weeks, no response to antibiotics History of Present Illness 21-year-old [employer] [facility] [employer] student with history of seizure disorder, asthma, and depression with anxiety VNS, status post placement recently, who was in usual state of health until approximately 6 weeks ago when she had onset of symptoms consistent with respiratory tract infection with pharyngitis and cough. She has been diagnosed with strep throat, pneumonia, and has received multiple courses of antibiotics over the last month. However symptoms have progressively worsened with persistent fever as high as 103 along with progressively worsening pharyngitis, cough, and severe fatigue and exhaustion. She also has had multiple seizures. [facility], and found to have mild leukocytosis, bilateral lower lobe pneumonitis on CT scan, negative cultures to date, and negative Monospot. States she has had mononucleosis in the past. No significant travel or other exposure history Past Medical/Surgical History Medical Problems: (1) Fever Status: Acute (2) Hypokalemia Status: Acute (3) Leukocytosis Status: Acute (4) Pharyngitis Status: Acute Medical Problems: (1) Asthma (2) Seizure Family History Diabetes mellitus FH: HTN (hypertension) FH: cancer FH: kidney disease FH: lung disease FHx: seizures Heart disease Social History Smoking Status: Never Smoker Smokeless Tobacco Use: No Alcohol Use: none Drug Use: none Housing Status: lives with roommate Occupation Status: student Allergies Coded Allergies: Azithromycin (Unverified Allergy, Severe, "SKIN FELT SUNBURNED", 03/04/17) Peanut (Unverified Allergy, Severe, ANAPHYLAXIS, 03/04/17) Current Inpatient Medications Current Inpatient Medications Medications (Trade) Dose Ordered Sig/Prasanth Route Start Time Stop Time Status Last Admin Dose Admin Acetaminophen (Tylenol Tab) 650 mg Q4H PRN PO 03/04/17 18:30 04/03/17 18:29 03/05/17 08:22 650 MG Al Hydrox/Mg Hydrox/Simethicone (Maalox Max Susp) 15 ml Q4H PRN PO 03/04/17 18:30 04/03/17 18:29 Magnesium Hydroxide (Milk Of Magnesia Susp) 30 ml Q6H PRN PO 03/04/17 18:30 04/03/17 18:29 Polyethylene (Miralax Powder Packet) 17 gm DAILY PRN PO 03/04/17 18:30 04/03/17 18:29 Ondansetron HCl (Zofran Inj) 4 mg Q6H PRN IV 03/04/17 18:30 04/03/17 18:29 Sodium Chloride 1,000 ml @ 100 mls/hr Q10H IV 03/04/17 20:15 04/03/17 20:14 03/05/17 11:48 100 MLS/HR Ioversol (Optiray 320) 100 ml UD PRN IV 03/04/17 18:45 03/08/17 18:44 Doxycycline Hyclate 100 mg/ Dextrose 110 ml @ 50 mls/hr Q12H IV 03/05/17 08:00 03/12/17 07:59 03/05/17 08:20 50 MLS/HR Budesonide/ Formoterol Fumarate (Symbicort 80/ 4.5 Inh) 2 puffs BID INH 03/04/17 21:00 04/03/17 20:59 03/05/17 08:46 2 PUFFS Cetirizine HCl (zyrTEC TAB) 10 mg DAILY PO 03/05/17 09:00 04/04/17 08:59 03/05/17 08:47 10 MG Clonazepam (Klonopin Tab) 0.5 mg HS PO 03/04/17 21:00 04/03/17 20:59 03/04/17 22:22 0.5 MG Clonazepam (Klonopin Tab) 1 mg UD PRN PO 03/04/17 19:15 04/03/17 19:14 Dronabinol (Marinol Cap) 5 mg BID PRN PO 03/04/17 19:15 04/03/17 19:14 Levetiracetam (Keppra Tab) 1,500 mg QAM PO 03/05/17 09:00 04/04/17 08:59 03/05/17 08:47 1,500 MG Levetiracetam (Keppra Tab) 2,000 mg QPM PO 03/04/17 21:00 04/03/17 20:59 03/04/17 22:18 2,000 MG Levothyroxine Sodium (Synthroid Tab) 75 mcg DAILYBB PO 03/05/17 06:00 04/04/17 06:59 03/05/17 06:12 75 MCG Mirtazapine (Remeron Tab) 15 mg HS PO 03/04/17 21:00 04/03/17 20:59 03/04/17 22:19 15 MG Montelukast Sodium (Singulair Tab) 10 mg DAILY PO 03/05/17 09:00 04/04/17 08:59 03/05/17 08:47 10 MG Multivitamins/ Minerals (Multivitamin W/ Minerals Tab) 1 tab DAILY PO 03/05/17 09:00 04/04/17 08:59 03/05/17 08:47 1 TAB Non-Formulary Medication (Rufinamide (Banzel)) 800 mg QAM PO 03/05/17 09:00 04/04/17 08:59 03/05/17 08:47 800 MG Non-Formulary Medication (Rufinamide (Banzel)) 1,200 mg QPM PO 03/04/17 21:00 04/03/17 20:59 03/04/17 22:17 1,200 MG Miscellaneous (Iv Fluids Completed) 1 ea PRN PRN N/A 03/04/17 20:00 03/04/18 19:59 Vancomycin HCl 1000 mg/Sodium Chloride 270 ml @ 125 mls/hr Q8H IV 03/05/17 20:00 03/12/17 19:59 Piperacillin Sod/ Tazobactam Sod 3.375 gm/Dextrose 115 ml @ 28.75 mls/ hr Q8H IV 03/05/17 18:00 03/12/17 17:59 Vancomycin HCl (Consult) 1 ea UD PRN N/A 03/05/17 11:45 04/04/17 11:44 Piperacillin Sod/ Tazobactam Sod (Consult) 1 ea UD PRN N/A 03/05/17 11:45 04/04/17 11:44 Review of Systems Constitutional: + fever, + chills, + weakness, + fatigue Eyes: No problem reported ENT: + nasal symptoms, + sore throat, + trouble swallowing Respiratory: + cough, + sputum Cardiovascular: No problem reported Abdomen: No problem reported Musculoskeletal: No problem reported Genitourinary - Female: No problem reported Neurologic: + problem reported (Seizures) Psychiatric: No problem reported Endocrine: No problem reported Hematologic / Lymphatic: + swollen lymph nodes Integumentary: No problem reported Allergic / Immunologic: No problem reported Physical Exam Date Time Temp Pulse Resp B/P (MAP) Pulse Ox O2 Delivery O2 Flow Rate FiO2 03/05/17 12:00 Room Air 03/05/17 11:28 37.5 99 16 102/56 (71) 98 Room Air 03/05/17 08:00 Room Air 03/05/17 07:38 38.1 114 18 98/41 (60) 96 Room Air 03/05/17 04:00 98 Room Air 03/05/17 03:51 36.9 100 18 100/56 (71) 99 Room Air 03/05/17 00:01 98 Room Air 03/04/17 23:48 37.1 127 22 110/54 (72) 93 Room Air 03/04/17 22:28 39.3 03/04/17 20:00 98 Room Air 03/04/17 20:00 38.0 93 16 118/70 (86) 98 Room Air 03/04/17 20:00 Room Air 03/04/17 19:30 92 20 100/60 99 Room Air 03/04/17 19:00 85 18 99 03/04/17 18:37 106 16 105/63 98 Room Air 03/04/17 17:07 90 20 100/60 97 Room Air 03/04/17 16:59 97 Room Air General Appearance: WD/WN, no apparent distress Head: normocephalic, atraumatic Eyes: normal inspection, EOMI, sclerae normal ENT: hearing grossly normal, + pharyngeal erythema, + tonsillar exudate Neck: supple, thyroid normal, trachea midline, + adenopathy present Respiratory/Chest: chest non-tender, lungs clear, normal breath sounds, no respiratory distress Cardiovascular: regular rate, rhythm, no gallop, no murmur Abdomen/GI: normal bowel sounds, soft, no organomegaly, + tenderness (Mild right upper quadrant without rebound or guarding) Back: normal inspection, no CVA tenderness Extremities/Musculoskelatal: no calf tenderness, non-tender Neurologic/Psych: alert, oriented x 3 Skin: normal color, warm/dry, no rash Lymphatic: + cervical node abnormality Laboratory Results Date/Time Source Procedure Growth Status 03/05/17 10:34 Blood Blood Culture Pending Received 03/05/17 10:30 Blood Blood Culture Pending Received 03/05/17 10:15 Urine , Clean Catch Urine Culture Pending Received Last 24 Hours Test 03/04/17 22:15 03/05/17 05:49 03/05/17 10:15 03/05/17 11:10 Influenza Type A (RT-PCR) Neg for Influ A Influenza Type A Antigen Neg for Influ A Influenza Type B Antigen Neg for Influ B Influenza Type B (RT-PCR) Neg for Influ B White Blood Count 13.29 K/uL Red Blood Count 4.03 M/uL Hemoglobin 12.0 g/dL Hematocrit 36.5 % Mean Corpuscular Volume 90.6 fL Mean Corpuscular Hemoglobin 29.8 pg Mean Corpuscular Hemoglobin Concent 32.9 g/dl RDW Standard Deviation 42.3 fL RDW Coefficient of Variation 12.7 % Platelet Count 210 K/uL Mean Platelet Volume 9.1 fL Sodium Level 137 mmol/L Potassium Level 3.3 mmol/L Chloride Level 105 mmol/L Carbon Dioxide Level 23 mmol/L Anion Gap 9.0 mmol/L Blood Urea Nitrogen 5 mg/dl Creatinine 0.62 mg/dl Est Creatinine Clear Calc Drug Dose 120.7 ml/min Estimated GFR () > 150.0 Estimated GFR (Non- 130.7 BUN/Creatinine Ratio 8.8 Random Glucose 82 mg/dl Calcium Level 7.6 mg/dl Lactic Acid Level 2.7 mmol/L HIV (1&2) Ab and P24 Ag, 4th Gener NEG Test 03/05/17 12:10 Patient Name: SHANT BARRIENTOS Unit Number: [id number] Dictated: 03/04/172153 Transcribed: 03/04/172153 EV Printed Date/Time: [~ rep prt dt]/[~ rep prt tm] [~ rep ct labl] - [~ rep ct ivnm] [facility] [place] [address] Dictated: 03/04/172153 Transcribed: 03/04/172153 EV Printed Date/Time: [~ rep prt dt]/[~ rep prt tm] [~ rep ct labl] - [~ rep ct ivnm] CT SCAN OF THE CHEST WITH IV CONTRAST CLINICAL HISTORY: Fever for months duration. Upper respiratory infection symptoms. COMPARISON STUDY: Chest x-ray dated 03/04/2017. TECHNIQUE: Following the IV administration of 92 cc of Optiray 320, CT scan of the thorax was performed from the thoracic inlet to the upper abdomen. Images are reviewed in the axial, sagittal, and coronal planes. IV contrast was administered without complication. A dose lowering technique was utilized adhering to the principles of ALARA. Evaluation of the upper chest is degraded by streak artifact from the patient's shoulders. CT DOSE: Reported separately and the concurrently performed CT scan of the neck. FINDINGS: Soft tissues: An electronic device is present in the left chest wall. A lead extends into the left neck. Thyroid: Imaged portions of the thyroid gland are normal in size and attenuation. Thoracic aorta: The thoracic aorta is normal in caliber and demonstrates standard 3-vessel arch anatomy. No dissection is seen. Pulmonary vasculature: The pulmonary trunk is normal in caliber. There are no filling defects identified in the central pulmonary vessels to indicate pulmonary embolus. Note that this examination was not protocoled for evaluation of the pulmonary arteries. Heart: The heart is normal in size and configuration, and without pericardial effusion. Lungs and pleural spaces: There is mild patchy groundglass change present in the lower lobes bilaterally, left greater than right. This likely represents an infectious/inflammatory pneumonitis. No lobar consolidation or pleural effusion is seen. The trachea and central airways are clear. Mediastinum: There is no mediastinal lymphadenopathy. Joceline: Clear. Axillae: There is no axillary lymphadenopathy. Upper abdomen: Partially visualized upper abdominal viscera is within normal limits. Skeletal structures: No lytic or blastic bony lesions are seen. IMPRESSION: There is mild patchy groundglass change present in the lower lobes bilaterally. This is consistent with a nonspecific infectious/inflammatory pneumonitis. Electronically signed by: Dominick Lowry M.D. 03/04/2017 9:58 PM Dictated Date/Time: 03/04/2017 9:54 PM The status of this report is Signed. Draft = Not yet reviewed or approved by Radiologist. Signed = Reviewed and approved by Radiologist. <AttendingPhy>Kevin Arguelles M.D.</AttendingPhy> <FamilyPhy>[facility]</FamilyPhy> <PrimaryPhy>[facility]</PrimaryPhy> < UnitNumber>[id number]</UnitNumber> <VisitNumber>[id number]</VisitNumber> < PatientName>SHANT BARRIENTOS</PatientName> <DateOfBirth>1995</DateOfBirth> < Location>[facility]</Location> <ServiceDate>03/04/17</ServiceDate> <MNE>ESINDI</MNE> < OrderingPhy>Amanda Kumar PA-C</OrderingPhy> <OrderingPhyMNE>f rep ord dr crisostomo </OrderingPhyMNE> <DictatingPhyMNE>f rep dict dr crisostomo</DictatingPhyMNE> < CCListMNE>f rep ct mne</CCListMNE> <AdmittingPhyMNE>f pt admit dr crisostomo</ AdmittingPhyMNE> <AttendingPhyMNE>f pt attend dr crisostomo</AttendingPhyMNE> <ConsultingPhyMNE>f pt consult dr crisostomo</ConsultingPhyMNE> <FamilyPhyMNE>f pt fam dr crisostomo</FamilyPhyMNE> <OtherPhyMNE>f pt other dr crisostomo</OtherPhyMNE> < PrimaryPhyMNE>f pt prim care dr crisostomo</PrimaryPhyMNE> <ReferringPhyMNE>f pt referring dr crisostomo</ReferringPhyMNE> Assessment & Plan 21-year-old female with seizure disorder with more than 1 month of respiratory symptoms in pharyngitis without response to antibiotics. CT scan suggestive of lower lobe interstitial pneumonitis. This raises possibility of atypical process such as mycoplasma, or viral infections such as CMV or less likely EBV. Also must consider noninfectious process such as autoimmune type disease given family history of dermatomyositis. Have ordered additional blood work in serologies, and would continue on present antibiotics for now pending further culture results. Will follow.
[2017-03-05] MEDS ORDERED: COUGH DROP (SUGAR FREE) LOZ 24 LOZ/1 BOX ONE (16:01)
--- NOTE | 2017-03-05 16:26 | Progress Note ---
Subjective Date of Service: Mar 05, 2017. Subjective Pt evaluation today including: conversation w/ patient, physical exam, chart review, lab review, review of studies, review of inpatient medication list Problem List Medical Problems: (1) Fever Status: Acute (2) Hypokalemia Status: Acute (3) Leukocytosis Status: Acute (4) Pharyngitis Status: Acute Review of Systems Constitutional: + fever, + chills, + weakness, + fatigue Eyes: No see HPI, No worsening of vision, No eye pain, No redness, No discharge , No diplopia, No problem reported ENT: No see HPI, No hearing loss, No unusual epistaxis, No nasal symptoms, No sore throat, No tinnitus, No dental problems, No trouble swallowing, No problem reported Respiratory: + cough, + sputum, + shortness of breath, + dyspnea on exertion, + dyspnea at rest Cardiac: No see HPI, No chest pain, No orthopnea, No PND, No edema, No claudication, No palpitations, No problem reported Breast: No see HPI, No breast lump, No change in shape, No nipple discharge, No breast pain, No problem reported Abdomen: No see HPI, No pain, No nausea, No vomiting, No diarrhea, No constipation, No GI bleeding, No problem reported Musculoskeletal: + muscle pain, No see HPI, No joint pain, No swelling, No calf pain, No problem reported Female : No see HPI, No dysuria, No urinary frequency, No hematuria, No incontinence, No abnormal vaginal bleeding, No vaginal discharge, No problem reported Neurologic: No see HPI, No memory loss, No paralysis, No weakness, No numbness/ tingling, No vertigo, No balance problems, No problem reported Psychiatric: No see HPI, No depression symptoms, No anhedonism, No anxiety, No insomnia, No substance abuse, No problem reported Heme: No see HPI, No abnormal bleeding/bruising, No clotting problems, No swollen lymph nodes, No night sweats, No problem reported Endo: No see HPI, No fatigue, No excessive thirst, No excessive urination, No problem reported Skin: No see HPI, No rash, No itch, No new/changing skin lesions, No color change, No bleeding, No problem reported Medications Current Inpatient Medications Medications (Trade) Dose Ordered Sig/[facility] Route Start Time Stop Time Status Last Admin Dose Admin Acetaminophen (Tylenol Tab) 650 mg Q4H PRN PO 03/04/17 18:30 04/03/17 18:29 03/05/17 16:03 650 MG Al Hydrox/Mg Hydrox/Simethicone (Maalox Max Susp) 15 ml Q4H PRN PO 03/04/17 18:30 04/03/17 18:29 Magnesium Hydroxide (Milk Of Magnesia Susp) 30 ml Q6H PRN PO 03/04/17 18:30 04/03/17 18:29 Polyethylene (Miralax Powder Packet) 17 gm DAILY PRN PO 03/04/17 18:30 04/03/17 18:29 Ondansetron HCl (Zofran Inj) 4 mg Q6H PRN IV 03/04/17 18:30 04/03/17 18:29 Sodium Chloride 1,000 ml @ 100 mls/hr Q10H IV 03/04/17 20:15 04/03/17 20:14 03/05/17 11:48 100 MLS/HR Ioversol (Optiray 320) 100 ml UD PRN IV 03/04/17 18:45 03/08/17 18:44 Doxycycline Hyclate 100 mg/ Dextrose 110 ml @ 50 mls/hr Q12H IV 03/05/17 08:00 03/12/17 07:59 03/05/17 08:20 50 MLS/HR Budesonide/ Formoterol Fumarate (Symbicort 80/ 4.5 Inh) 2 puffs BID INH 03/04/17 21:00 04/03/17 20:59 03/05/17 08:46 2 PUFFS Cetirizine HCl (zyrTEC TAB) 10 mg DAILY PO 03/05/17 09:00 04/04/17 08:59 03/05/17 08:47 10 MG Clonazepam (Klonopin Tab) 0.5 mg HS PO 03/04/17 21:00 04/03/17 20:59 03/04/17 22:22 0.5 MG Clonazepam (Klonopin Tab) 1 mg UD PRN PO 03/04/17 19:15 04/03/17 19:14 Dronabinol (Marinol Cap) 5 mg BID PRN PO 03/04/17 19:15 04/03/17 19:14 Levetiracetam (Keppra Tab) 1,500 mg QAM PO 03/05/17 09:00 04/04/17 08:59 03/05/17 08:47 1,500 MG Levetiracetam (Keppra Tab) 2,000 mg QPM PO 03/04/17 21:00 04/03/17 20:59 03/04/17 22:18 2,000 MG Levothyroxine Sodium (Synthroid Tab) 75 mcg DAILYBB PO 03/05/17 06:00 04/04/17 06:59 03/05/17 06:12 75 MCG Mirtazapine (Remeron Tab) 15 mg HS PO 03/04/17 21:00 04/03/17 20:59 03/04/17 22:19 15 MG Montelukast Sodium (Singulair Tab) 10 mg DAILY PO 03/05/17 09:00 04/04/17 08:59 03/05/17 08:47 10 MG Multivitamins/ Minerals (Multivitamin W/ Minerals Tab) 1 tab DAILY PO 03/05/17 09:00 04/04/17 08:59 03/05/17 08:47 1 TAB Non-Formulary Medication (Rufinamide (Banzel)) 800 mg QAM PO 03/05/17 09:00 04/04/17 08:59 03/05/17 08:47 800 MG Non-Formulary Medication (Rufinamide (Banzel)) 1,200 mg QPM PO 03/04/17 21:00 04/03/17 20:59 03/04/17 22:17 1,200 MG Miscellaneous (Iv Fluids Completed) 1 ea PRN PRN N/A 03/04/17 20:00 03/04/18 19:59 Vancomycin HCl 1000 mg/Sodium Chloride 270 ml @ 125 mls/hr Q8H IV 03/05/17 20:00 03/12/17 19:59 Piperacillin Sod/ Tazobactam Sod 3.375 gm/Dextrose 115 ml @ 28.75 mls/ hr Q8H IV 03/05/17 18:00 03/12/17 17:59 Vancomycin HCl (Consult) 1 ea UD PRN N/A 03/05/17 11:45 04/04/17 11:44 Piperacillin Sod/ Tazobactam Sod (Consult) 1 ea UD PRN N/A 03/05/17 11:45 04/04/17 11:44 Objective Vital Signs Date Time Temp Pulse Resp B/P (MAP) Pulse Ox O2 Delivery O2 Flow Rate FiO2 03/05/17 12:00 Room Air 03/05/17 11:28 37.5 99 16 102/56 (71) 98 Room Air 03/05/17 08:00 Room Air 03/05/17 07:38 38.1 114 18 98/41 (60) 96 Room Air 03/05/17 04:00 98 Room Air 03/05/17 03:51 36.9 100 18 100/56 (71) 99 Room Air 03/05/17 00:01 98 Room Air 03/04/17 23:48 37.1 127 22 110/54 (72) 93 Room Air 03/04/17 22:28 39.3 03/04/17 20:00 98 Room Air 03/04/17 20:00 38.0 93 16 118/70 (86) 98 Room Air 03/04/17 20:00 Room Air 03/04/17 19:30 92 20 100/60 99 Room Air 03/04/17 19:00 85 18 99 03/04/17 18:37 106 16 105/63 98 Room Air 03/04/17 17:07 90 20 100/60 97 Room Air 03/04/17 16:59 97 Room Air Physical Exam General Appearance: WD/WN, + mild distress Eyes: normal inspection, EOMI ENT: normal ENT inspection, hearing grossly normal Neck: supple Respiratory/Chest: chest non-tender, no accessory muscle use, + decreased breath sounds, + crackles Cardiovascular: regular rate, rhythm, no edema, no gallop, no murmur, + tachycardia Abdomen: normal bowel sounds, non tender, soft, no organomegaly Extremities: normal range of motion, non-tender, normal inspection, no pedal edema, no calf tenderness Neurologic/Psychiatric: animal attendants and trainers II-XII nml as tested, no motor/sensory deficits, alert, normal mood/affect, oriented x 3 Skin: normal color, warm/dry, no rash Laboratory Results Last 24 Hours Test 03/04/17 22:15 03/05/17 05:49 03/05/17 10:15 03/05/17 11:10 Influenza Type A (RT-PCR) Neg for Influ A Influenza Type A Antigen Neg for Influ A Influenza Type B Antigen Neg for Influ B Influenza Type B (RT-PCR) Neg for Influ B White Blood Count 13.29 K/uL Red Blood Count 4.03 M/uL Hemoglobin 12.0 g/dL Hematocrit 36.5 % Mean Corpuscular Volume 90.6 fL Mean Corpuscular Hemoglobin 29.8 pg Mean Corpuscular Hemoglobin Concent 32.9 g/dl RDW Standard Deviation 42.3 fL RDW Coefficient of Variation 12.7 % Platelet Count 210 K/uL Mean Platelet Volume 9.1 fL Sodium Level 137 mmol/L Potassium Level 3.3 mmol/L Chloride Level 105 mmol/L Carbon Dioxide Level 23 mmol/L Anion Gap 9.0 mmol/L Blood Urea Nitrogen 5 mg/dl Creatinine 0.62 mg/dl Est Creatinine Clear Calc Drug Dose 120.7 ml/min Estimated GFR () > 150.0 Estimated GFR (Non- 130.7 BUN/Creatinine Ratio 8.8 Random Glucose 82 mg/dl Calcium Level 7.6 mg/dl Lactic Acid Level 2.7 mmol/L HIV (1&2) Ab and P24 Ag, 4th Gener NEG Test 03/05/17 12:10 03/05/17 16:10 Assessment and Plan 21 years old with past medical history of persistent seizure disorder status post vagus nerve stimulator presented to the ED with breakthrough seizure, upper and lower respiratory tract infection 4 weeks. Assessment Severe sepsis present on admission Upper and lower respiratory tract infection Pharyngitis History of recent positive Ebstein Karimi virus Seizure disorder with recent breakthrough, could be Keflex related Asthma without exacerbation Poor appetite Anxiety/depression Plan Continue telemetry Continue doxycycline Added Vanco/Zosyn Strep swab was negative awaiting culture Influenza flu rapid was negative awaiting PCR/culture Lumbar puncture was unremarkable, awaiting cultures Consult infectious diseases appreciated Continue antiseizure medications, check Keppra level Obtain blood cultures, if blood cultures are positive vagus nerve stimulator might need to be removed Continue Symbicort Continue appetite stimulant heparin for DVT prophylaxis
[2017-03-05] MEDS: PIPERACILL/TAZOBAC IV 3.375 GM in DEXTROSE 5% 100ML 100 ML IV SCH (18:22)
[2017-03-05 18:45] LABS: INR 1.2 (0.9-1.1); PARTIAL THROMBOPLASTIN RATIO 1.2; PROTHROMBIN TIME (PATIENT) 13.4 SECONDS (9.0-12.0)
[2017-03-05] MEDS: MIRTAZAPINE TAB 15 MG TAB PO SCH (20:07)
[2017-03-05] MEDS: RUFINAMIDE PO SCH (20:14)
[2017-03-05] MEDS: VANCOMYCIN INJ 1,000 MG in SODIUM CHLORIDE 0.9% 250ML 250 ML IV SCH (20:14)
[2017-03-05] MEDS: CLONAZEPAM 0.5 MG TAB PO SCH (20:15)
[2017-03-05] MEDS: HEPARIN SOD 5000 UNIT/0.5 ML CARP SQ SCH (20:17)
[2017-03-06 00:27] VITALS: BP 92/43; PULSE 102; TEMP 37.3; O2SAT 98
[2017-03-06] MEDS: PIPERACILL/TAZOBAC IV 3.375 GM in DEXTROSE 5% 100ML 100 ML IV SCH ×3 (02:14→17:57)
[2017-03-06] MEDS: SODIUM CHLORIDE 0.9% 1000ML 1,000 ML IV SCH ×3 (02:14→22:15)
[2017-03-06 04:12] VITALS: BP 98/52; PULSE 101; TEMP 36.5; O2SAT 99
[2017-03-06] MEDS: VANCOMYCIN INJ 1,000 MG in SODIUM CHLORIDE 0.9% 250ML 250 ML IV SCH ×3 (04:22→20:45)
[2017-03-06] MEDS: LEVOTHYROXINE 75 MCG TAB PO SCH (06:01)
[2017-03-06] MEDS: HEPARIN SOD 5000 UNIT/0.5 ML CARP SQ SCH ×3 (06:02→20:49)
[2017-03-06 06:56] LABS: BASO % 0.4 %; BASO ABS # 0.03 K/uL (0-0.2); COMPLETE YES; HEMATOCRIT 31.2 % (37-47); IG% 0.1 %; LYMPH % 28.8 %; LYMPH ABS # 2.26 K/uL (1.2-3.4); MEAN CELL VOLUME 91.8 fL (80-100); MEAN CORPUSCULAR HEMOGLOBIN 30.9 pg (25-34); MEAN CORPUSCULAR HGB CONC 33.7 g/dl (32-36); MEAN PLATELET VOLUME 9.4 fL (7.4-10.4); MONO % 11.8 %; NEUT % 56.9 %; PLATELET COUNT 192 K/uL (130-400); WHITE BLOOD COUNT 7.85 K/uL (4.8-10.8)
[2017-03-06 07:43] LABS: ALB/GLOB RATIO 0.8 (0.9-2); ALKALINE PHOSPHATASE 53 U/L (45-117); ALT/SGPT 15 U/L (12-78); AST/SGOT 13 U/L (15-37); BLOOD UREA NITROGEN 4 mg/dl (7-18); BUN/CREATININE RATIO 7.2 (10-20); CALCIUM 7.5 mg/dl (8.5-10.1); CARBON DIOXIDE 24 mmol/L (21-32); CHLORIDE 108 mmol/L (98-107); CREATININE 0.56 mg/dl (0.60-1.20); GLUCOSE 81 mg/dl (70-99); POTASSIUM 3.5 mmol/L (3.5-5.1); SODIUM 139 mmol/L (136-145)
[2017-03-06] MEDS: LACTOBACILLUS ACIDOPHILUS (FLORANEX) TAB PO SCH ×3 (07:58→16:16)
[2017-03-06] MEDS: BUDESONIDE/FORMOTEROL FUMARATE 80/4.5 60 PUFFS/INHALER INH SCH ×2 (07:59→20:45)
[2017-03-06 08:00] VITALS: BP 103/54; PULSE 104; TEMP 37; O2SAT 98
[2017-03-06] MEDS: DOXYCYCLINE IV 100 MG in DEXTROSE 5% 100ML 100 ML IV SCH ×2 (08:02→20:45)
[2017-03-06] MEDS: ACETAMINOPHEN 325 MG TAB PO PRN ×2 (08:02→18:03)
[2017-03-06] MEDS: RUFINAMIDE 800 MG PO SCH (08:03)
[2017-03-06] MEDS: CEROVITE ADV FORMULA TAB PO SCH (08:03)
[2017-03-06] MEDS: LEVETIRACETAM 500 MG TAB PO SCH (08:03)
[2017-03-06] MEDS: CETIRIZINE HCL 10 MG TAB PO SCH (08:04)
[2017-03-06] MEDS: MONTELUKAST SOD 10 MG TAB PO SCH (08:04)
[2017-03-06 12:10] VITALS: BP 97/53; PULSE 93; TEMP 36.8; O2SAT 99
[2017-03-06 15:53] VITALS: BP 87/43; PULSE 90; TEMP 36.9; O2SAT 98
--- NOTE | 2017-03-06 16:30 | Progress Note ---
Subjective Date of Service: Mar 06, 2017. Subjective Pt evaluation today including: conversation w/ patient, conversation w/ family , physical exam, chart review, lab review, review of inpatient medication list Problem List Medical Problems: (1) Fever Status: Acute (2) Hypokalemia Status: Acute (3) Leukocytosis Status: Acute (4) Pharyngitis Status: Acute Review of Systems Constitutional: + weakness, + fatigue, No see HPI, No fever, No chills, No sweats, No weight loss, No problem reported Eyes: No see HPI, No worsening of vision, No eye pain, No redness, No discharge , No diplopia, No problem reported ENT: No see HPI, No hearing loss, No unusual epistaxis, No nasal symptoms, No sore throat, No tinnitus, No dental problems, No trouble swallowing, No problem reported Respiratory: No see HPI, No cough, No sputum, No wheezing, No shortness of breath, No dyspnea on exertion, No dyspnea at rest, No hemoptysis, No problem reported Cardiac: No see HPI, No chest pain, No orthopnea, No PND, No edema, No claudication, No palpitations, No problem reported Abdomen: No see HPI, No pain, No nausea, No vomiting, No diarrhea, No constipation, No GI bleeding, No problem reported Musculoskeletal: No see HPI, No joint pain, No muscle pain, No swelling, No calf pain, No problem reported Female : No see HPI, No dysuria, No urinary frequency, No hematuria, No incontinence, No abnormal vaginal bleeding, No vaginal discharge, No problem reported Neurologic: No see HPI, No memory loss, No paralysis, No weakness, No numbness/ tingling, No vertigo, No balance problems, No problem reported Psychiatric: No see HPI, No depression symptoms, No anhedonism, No anxiety, No insomnia, No substance abuse, No problem reported Heme: No see HPI, No abnormal bleeding/bruising, No clotting problems, No swollen lymph nodes, No night sweats, No problem reported Endo: No see HPI, No fatigue, No excessive thirst, No excessive urination, No problem reported Skin: No see HPI, No rash, No itch, No new/changing skin lesions, No color change, No bleeding, No problem reported Medications Current Inpatient Medications Medications (Trade) Dose Ordered Sig/Prasanth Route Start Time Stop Time Status Last Admin Dose Admin Acetaminophen (Tylenol Tab) 650 mg Q4H PRN PO 03/04/17 18:30 04/03/17 18:29 03/06/17 08:02 650 MG Al Hydrox/Mg Hydrox/Simethicone (Maalox Max Susp) 15 ml Q4H PRN PO 03/04/17 18:30 04/03/17 18:29 Magnesium Hydroxide (Milk Of Magnesia Susp) 30 ml Q6H PRN PO 03/04/17 18:30 04/03/17 18:29 Polyethylene (Miralax Powder Packet) 17 gm DAILY PRN PO 03/04/17 18:30 04/03/17 18:29 Ondansetron HCl (Zofran Inj) 4 mg Q6H PRN IV 03/04/17 18:30 04/03/17 18:29 Sodium Chloride 1,000 ml @ 100 mls/hr Q10H IV 03/04/17 20:15 04/03/17 20:14 03/06/17 16:17 100 MLS/HR Ioversol (Optiray 320) 100 ml UD PRN IV 03/04/17 18:45 03/08/17 18:44 Doxycycline Hyclate 100 mg/ Dextrose 110 ml @ 50 mls/hr Q12H IV 03/05/17 08:00 03/12/17 07:59 03/06/17 08:02 50 MLS/HR Budesonide/ Formoterol Fumarate (Symbicort 80/ 4.5 Inh) 2 puffs BID INH 03/04/17 21:00 04/03/17 20:59 03/06/17 07:59 2 PUFFS Cetirizine HCl (zyrTEC TAB) 10 mg DAILY PO 03/05/17 09:00 04/04/17 08:59 03/06/17 08:04 10 MG Clonazepam (Klonopin Tab) 0.5 mg HS PO 03/04/17 21:00 04/03/17 20:59 03/05/17 20:15 0.5 MG Clonazepam (Klonopin Tab) 1 mg UD PRN PO 03/04/17 19:15 04/03/17 19:14 Dronabinol (Marinol Cap) 5 mg BID PRN PO 03/04/17 19:15 04/03/17 19:14 Levothyroxine Sodium (Synthroid Tab) 75 mcg DAILYBB PO 03/05/17 06:00 04/04/17 06:59 03/06/17 06:01 75 MCG Mirtazapine (Remeron Tab) 15 mg HS PO 03/04/17 21:00 04/03/17 20:59 03/04/17 22:19 15 MG Montelukast Sodium (Singulair Tab) 10 mg DAILY PO 03/05/17 09:00 04/04/17 08:59 03/06/17 08:04 10 MG Multivitamins/ Minerals (Multivitamin W/ Minerals Tab) 1 tab DAILY PO 03/05/17 09:00 04/04/17 08:59 03/06/17 08:03 1 TAB Non-Formulary Medication (Rufinamide (Banzel)) 800 mg QAM PO 03/05/17 09:00 04/04/17 08:59 03/06/17 08:03 800 MG Non-Formulary Medication (Rufinamide (Banzel)) 1,200 mg QPM PO 03/04/17 21:00 04/03/17 20:59 03/05/17 20:14 1,200 MG Miscellaneous (Iv Fluids Completed) 1 ea PRN PRN N/A 03/04/17 20:00 03/04/18 19:59 Vancomycin HCl 1000 mg/Sodium Chloride 270 ml @ 125 mls/hr Q8H IV 03/05/17 20:00 03/12/17 19:59 03/06/17 12:07 125 MLS/HR Piperacillin Sod/ Tazobactam Sod 3.375 gm/Dextrose 115 ml @ 28.75 mls/ hr Q8H IV 03/05/17 18:00 03/12/17 17:59 03/06/17 10:43 28.75 MLS/HR Vancomycin HCl (Consult) 1 ea UD PRN N/A 03/05/17 11:45 04/04/17 11:44 Piperacillin Sod/ Tazobactam Sod (Consult) 1 ea UD PRN N/A 03/05/17 11:45 04/04/17 11:44 Heparin Sodium (Porcine) (Heparin Sq 5000 Unit/0.5ml) 5,000 unit Q8 SQ 03/05/17 22:00 04/04/17 21:59 03/06/17 16:15 5,000 UNIT Lactobacillus Acidophilus (Floranex Tab) 4 tab TIDM PO 03/06/17 07:30 04/05/17 07:29 03/06/17 16:16 4 TAB Levetiracetam (Keppra Tab) 1,500 mg QAM PO 03/07/17 09:00 04/06/17 08:59 Levetiracetam (Keppra Tab) 2,000 mg QPM PO 03/06/17 21:00 04/05/17 20:59 Objective Vital Signs Date Time Temp Pulse Resp B/P (MAP) Pulse Ox O2 Delivery O2 Flow Rate FiO2 03/06/17 15:53 36.9 90 16 87/43 (58) 98 Room Air 03/06/17 12:10 36.8 93 18 97/53 (68) 99 Room Air 03/06/17 08:00 37.0 104 16 103/54 (70) 98 Room Air 03/06/17 04:12 36.5 101 18 98/52 (67) 99 Room Air 03/06/17 04:00 Room Air 03/06/17 00:27 37.3 102 18 92/43 (59) 98 Room Air 03/06/17 00:00 Room Air 03/05/17 20:19 37.3 98 16 97/43 (61) 98 Room Air 03/05/17 20:00 Room Air 03/05/17 16:50 37.2 108 18 108/61 (77) 98 Room Air Physical Exam General Appearance: WD/WN, no apparent distress Eyes: normal inspection, EOMI ENT: normal ENT inspection, hearing grossly normal Neck: supple Respiratory/Chest: chest non-tender, lungs clear, normal breath sounds, no respiratory distress, no accessory muscle use Cardiovascular: regular rate, rhythm, no edema, no gallop, no JVD, no murmur Abdomen: normal bowel sounds, non tender, soft, no organomegaly, no pulsatile mass Extremities: normal range of motion, non-tender, normal inspection, no pedal edema, no calf tenderness Neurologic/Psychiatric: credit assessment analyst II-XII nml as tested, no motor/sensory deficits, alert, normal mood/affect, oriented x 3 Skin: normal color, warm/dry, no rash Laboratory Results Last 24 Hours Test 03/05/17 18:20 03/06/17 06:18 03/06/17 07:47 Prothrombin Time 13.4 SECONDS Prothromb Time International Ratio 1.2 Activated Partial Thromboplast Time 30.0 SECONDS Partial Thromboplastin Ratio 1.2 White Blood Count 7.85 K/uL Red Blood Count 3.40 M/uL Hemoglobin 10.5 g/dL Hematocrit 31.2 % Mean Corpuscular Volume 91.8 fL Mean Corpuscular Hemoglobin 30.9 pg Mean Corpuscular Hemoglobin Concent 33.7 g/dl Platelet Count 192 K/uL Mean Platelet Volume 9.4 fL Neutrophils (%) (Auto) 56.9 % Lymphocytes (%) (Auto) 28.8 % Monocytes (%) (Auto) 11.8 % Eosinophils (%) (Auto) 2.0 % Basophils (%) (Auto) 0.4 % Neutrophils # (Auto) 4.46 K/uL Lymphocytes # (Auto) 2.26 K/uL Monocytes # (Auto) 0.93 K/uL Eosinophils # (Auto) 0.16 K/uL Basophils # (Auto) 0.03 K/uL RDW Standard Deviation 43.0 fL RDW Coefficient of Variation 12.9 % Immature Granulocyte % (Auto) 0.1 % Immature Granulocyte # (Auto) 0.01 K/uL Sodium Level 139 mmol/L Potassium Level 3.5 mmol/L Chloride Level 108 mmol/L Carbon Dioxide Level 24 mmol/L Anion Gap 7.0 mmol/L Blood Urea Nitrogen 4 mg/dl Creatinine 0.56 mg/dl Est Creatinine Clear Calc Drug Dose 133.6 ml/min Estimated GFR () > 150.0 Estimated GFR (Non- 135.2 BUN/Creatinine Ratio 7.2 Random Glucose 81 mg/dl Calcium Level 7.5 mg/dl Total Bilirubin 0.4 mg/dl Aspartate Amino Transf (AST/SGOT) 13 U/L Alanine Aminotransferase (ALT/SGPT) 15 U/L Alkaline Phosphatase 53 U/L Total Protein 6.0 gm/dl Albumin 2.6 gm/dl Globulin 3.4 gm/dl Albumin/Globulin Ratio 0.8 Lactic Acid Level 0.9 mmol/L Assessment and Plan 21 years old with past medical history of persistent seizure disorder status post vagus nerve stimulator presented to the ED with breakthrough seizure, upper and lower respiratory tract infection 4 weeks. Assessment Severe sepsis present on admission, improving Upper and lower respiratory tract infection Pharyngitis History of recent positive Ebstein Karimi virus Seizure disorder with recent breakthrough, could be Keflex related Asthma without exacerbation Poor appetite Anxiety/depression Hx of C diff Plan leukocytosis improved Continue telemetry ID consult appreciated Continue doxycycline started 03/04 continue Vanco/Zosyn started 03/05 added lactinex for C dif prophylaxis Strep swab was negative awaiting culture Influenza flu rapid was negative awaiting PCR/culture Lumbar puncture was unremarkable, awaiting cultures Continue antiseizure medications, F/U Keppra level (pending) F/U blood cultures, if blood cultures are positive vagus nerve stimulator might need to be removed Continue Symbicort Continue appetite stimulant heparin for DVT prophylaxis
[2017-03-06 19:27] VITALS: BP 105/57; PULSE 98; TEMP 36.8; O2SAT 98
[2017-03-06] MEDS ORDERED: VANCOMYCIN TROUGH SCH (19:30)
[2017-03-06] MEDS: MIRTAZAPINE TAB 15 MG TAB PO SCH (20:43)
[2017-03-06] MEDS: RUFINAMIDE PO SCH (20:45)
[2017-03-06] MEDS: CLONAZEPAM 0.5 MG TAB PO SCH (20:45)
[2017-03-06] MEDS ORDERED: LEVETIRACETAM 250 MG TAB PO SCH (21:00)
[2017-03-07 00:16] VITALS: BP 105/54; PULSE 91; TEMP 36.8; O2SAT 97
[2017-03-07] MEDS: PIPERACILL/TAZOBAC IV 3.375 GM in DEXTROSE 5% 100ML 100 ML IV SCH ×2 (02:05→12:57)
[2017-03-07] MEDS: VANCOMYCIN INJ 1,000 MG in SODIUM CHLORIDE 0.9% 250ML 250 ML IV SCH ×2 (02:05→10:32)
[2017-03-07 02:16] VITALS: BP 122/71; PULSE 98; TEMP 36.5; O2SAT 97
[2017-03-07] MEDS: LEVOTHYROXINE 75 MCG TAB PO SCH (06:08)
[2017-03-07] MEDS: HEPARIN SOD 5000 UNIT/0.5 ML CARP SQ SCH ×3 (06:09→22:17)
[2017-03-07 06:13] LABS: HEMATOCRIT 33.4 % (37-47); MEAN CELL VOLUME 91.5 fL (80-100); MEAN CORPUSCULAR HEMOGLOBIN 30.4 pg (25-34); MEAN CORPUSCULAR HGB CONC 33.2 g/dl (32-36); MEAN PLATELET VOLUME 9.2 fL (7.4-10.4); PLATELET COUNT 214 K/uL (130-400); RED BLOOD COUNT 3.65 M/uL (4.2-5.4); WHITE BLOOD COUNT 5.33 K/uL (4.8-10.8)
[2017-03-07 06:46] LABS: BUN/CREATININE RATIO 9.5 (10-20); CREATININE 0.74 mg/dl (0.60-1.20); POTASSIUM 3.8 mmol/L (3.5-5.1)
[2017-03-07 06:48] LABS: ALB/GLOB RATIO 0.7 (0.9-2)
[2017-03-07 07:45] VITALS: BP_SYST 80; BP_SYST 89; BP_DIAS 39; BP_DIAS 49; PULSE 87; TEMP 36.5; O2SAT 96
--- NOTE | 2017-03-07 07:47 | Pharmacy Progress Note ---
Pharmacy Abx Dose Short Note Date of Service Mar 07, 2017. Assessment & Plan Assessment 21 year old female receiving Vancomycin for treatment of fever, leukocytosis, r/ o sepsis, pneumonia Day # 2 of antimicrobial therapy. Plan Vancomycin * Trough level of 8.8 mcg/mL is subtherapeutic * Change to 1000 mg (~18mg/kg) IV every 6 hours * Goal trough level for pneumonia (r/o sepsis) : 15 to 20 mcg/mL * Trough level ordered for: 03/07/17 ~30 minutes before the 4th maintenance dose. Pharmacy will continue to follow and will adjust dose/frequency as necessary. Thank you.
[2017-03-07] MEDS ORDERED: LEVETIRACETAM 250 MG TAB PO SCH (09:00)
[2017-03-07 09:19] LABS: BASO ABS # 0.05 K/uL (0-0.2); BASOPHIL % 0.9 %; COMPLETE YES; EOSINOPHIL % 1.7 %; LYMPH ABS # 2.83 K/uL (1.2-3.4); LYMPHOCYTE % 53.1 %; NEUTROPHILS % 27.8 %; VARIANT LYMPHOCYTE % 11.3 %
[2017-03-07] MEDS: SODIUM CHLORIDE 0.9% 1000ML 1,000 ML IV SCH ×3 (09:35→23:46)
[2017-03-07] MEDS: LACTOBACILLUS ACIDOPHILUS (FLORANEX) TAB PO SCH ×3 (09:36→17:26)
[2017-03-07] MEDS: BUDESONIDE/FORMOTEROL FUMARATE 80/4.5 60 PUFFS/INHALER INH SCH ×2 (09:40→21:12)
[2017-03-07] MEDS: DOXYCYCLINE IV 100 MG in DEXTROSE 5% 100ML 100 ML IV SCH (09:40)
[2017-03-07] MEDS: MONTELUKAST SOD 10 MG TAB PO SCH (09:42)
[2017-03-07] MEDS: CETIRIZINE HCL 10 MG TAB PO SCH (09:42)
[2017-03-07] MEDS: CEROVITE ADV FORMULA TAB PO SCH (09:43)
[2017-03-07] MEDS: RUFINAMIDE 800 MG PO SCH (09:44)
[2017-03-07 11:00] VITALS: BP 101/52; PULSE 87; TEMP 36.7; O2SAT 97
[2017-03-07] MEDS ORDERED: IBUPROFEN 600 MG TAB PO STA (14:49)
[2017-03-07 15:39] VITALS: BP 102/53; PULSE 94; TEMP 36.5; O2SAT 98
--- NOTE | 2017-03-07 16:08 | Hospitalist Progress Note ---
Hospitalist Progress Note Date of Service Mar 07, 2017. Subjective Pt evaluation today including: conversation w/ patient, conversation w/ family , physical exam, chart review, lab review, review of studies, conversation w/ [facility] accommodation consultant (Dr. Wilson), review of inpatient medication list Patient seen and evaluated. No acute events overnight. Unremarkable on telemetry Reporting continued generalized aches but states she is beginning to feel better. Throat is less sore. Continues to have a cough but feels that is improving. Still with generalized fatigue. Not much of an appetite but trying to eat and drink. Father at bedside reporting multiple people back home testing + for adenovirus. Also states he BP continues to remain low. Will check cortisol in AM. No seizure activity during admission. Constitutional: No fever, No chills ENT: + sore throat (improving) Respiratory: + cough, + sputum, No shortness of breath Cardiovascular: No chest pain Abdomen: No pain, No nausea, No vomiting, No diarrhea, No constipation Musculoskeletal: No swelling, No calf pain Female : No dysuria Heme: No abnormal bleeding/bruising Skin: No rash Medications Current Inpatient Medications Medications (Trade) Dose Ordered Sig/Prasanth Route Start Time Stop Time Status Last Admin Dose Admin Acetaminophen (Tylenol Tab) 650 mg Q4H PRN PO 03/04/17 18:30 04/03/17 18:29 03/06/17 18:03 650 MG Al Hydrox/Mg Hydrox/Simethicone (Maalox Max Susp) 15 ml Q4H PRN PO 03/04/17 18:30 04/03/17 18:29 Magnesium Hydroxide (Milk Of Magnesia Susp) 30 ml Q6H PRN PO 03/04/17 18:30 04/03/17 18:29 Polyethylene (Miralax Powder Packet) 17 gm DAILY PRN PO 03/04/17 18:30 04/03/17 18:29 Ondansetron HCl (Zofran Inj) 4 mg Q6H PRN IV 03/04/17 18:30 04/03/17 18:29 Sodium Chloride 1,000 ml @ 100 mls/hr Q10H IV 03/04/17 20:15 04/03/17 20:14 03/07/17 09:48 100 MLS/HR Ioversol (Optiray 320) 100 ml UD PRN IV 03/04/17 18:45 03/08/17 18:44 Budesonide/ Formoterol Fumarate (Symbicort 80/ 4.5 Inh) 2 puffs BID INH 03/04/17 21:00 04/03/17 20:59 03/07/17 09:40 2 PUFFS Cetirizine HCl (zyrTEC TAB) 10 mg DAILY PO 03/05/17 09:00 04/04/17 08:59 03/07/17 09:42 10 MG Clonazepam (Klonopin Tab) 0.5 mg HS PO 03/04/17 21:00 04/03/17 20:59 03/06/17 20:45 0.5 MG Clonazepam (Klonopin Tab) 1 mg UD PRN PO 03/04/17 19:15 04/03/17 19:14 Dronabinol (Marinol Cap) 5 mg BID PRN PO 03/04/17 19:15 04/03/17 19:14 Levothyroxine Sodium (Synthroid Tab) 75 mcg DAILYBB PO 03/05/17 06:00 04/04/17 06:59 03/07/17 06:08 75 MCG Mirtazapine (Remeron Tab) 15 mg HS PO 03/04/17 21:00 04/03/17 20:59 03/04/17 22:19 15 MG Montelukast Sodium (Singulair Tab) 10 mg DAILY PO 03/05/17 09:00 04/04/17 08:59 03/07/17 09:42 10 MG Multivitamins/ Minerals (Multivitamin W/ Minerals Tab) 1 tab DAILY PO 03/05/17 09:00 04/04/17 08:59 03/07/17 09:43 1 TAB Non-Formulary Medication (Rufinamide (Banzel)) 800 mg QAM PO 03/05/17 09:00 04/04/17 08:59 03/07/17 09:44 800 MG Non-Formulary Medication (Rufinamide (Banzel)) 1,200 mg QPM PO 03/04/17 21:00 04/03/17 20:59 03/06/17 20:45 1,200 MG Miscellaneous (Iv Fluids Completed) 1 ea PRN PRN N/A 03/04/17 20:00 03/04/18 19:59 Heparin Sodium (Porcine) (Heparin Sq 5000 Unit/0.5ml) 5,000 unit Q8 SQ 03/05/17 22:00 04/04/17 21:59 03/07/17 14:33 5,000 UNIT Lactobacillus Acidophilus (Floranex Tab) 4 tab TIDM PO 03/06/17 07:30 04/05/17 07:29 03/07/17 12:57 3 TAB Levetiracetam (Keppra Tab) 2,000 mg QPM PO 03/07/17 21:00 04/06/17 20:59 Levetiracetam (Keppra Tab) 1,500 mg QAM PO 03/08/17 09:00 04/07/17 08:59 Doxycycline Hyclate (Vibramycin Cap) 100 mg BID PO 03/07/17 21:00 03/14/17 20:59 Objective Vital Signs Date Time Temp Pulse Resp B/P (MAP) Pulse Ox O2 Delivery O2 Flow Rate FiO2 03/07/17 15:39 36.5 94 17 102/53 (69) 98 Room Air 03/07/17 12:00 Room Air 03/07/17 11:00 36.7 87 20 101/52 (68) 97 Room Air 03/07/17 08:00 Room Air 03/07/17 07:45 36.5 87 16 89/49 (62) 96 Room Air 80/39 (53) 03/07/17 04:00 Room Air 03/07/17 02:16 36.5 98 16 122/71 (88) 97 Room Air 03/07/17 00:16 36.8 91 19 105/54 (71) 97 Room Air 03/07/17 00:00 Room Air 03/06/17 20:00 Room Air 03/06/17 19:27 36.8 98 16 105/57 (73) 98 Room Air 03/06/17 16:00 Room Air Physical Exam General Appearance: WD/WN, no apparent distress, + thin Eyes: sclerae normal ENT: hearing grossly normal Neck: supple, no JVD, trachea midline Respiratory/Chest: no respiratory distress, no accessory muscle use, + pertinent finding (course breath sounds at bases) Cardiovascular: regular rate, rhythm, no gallop, no murmur Abdomen: normal bowel sounds, non tender, soft Extremities: no pedal edema, no calf tenderness Neurologic/Psychiatric: alert, oriented x 3 Skin: normal color, warm/dry Laboratory Results Last 24 Hours Test 03/06/17 19:37 03/07/17 05:55 Vancomycin Level Trough 8.8 mcg/ml White Blood Count 5.33 K/uL Red Blood Count 3.65 M/uL Hemoglobin 11.1 g/dL Hematocrit 33.4 % Mean Corpuscular Volume 91.5 fL Mean Corpuscular Hemoglobin 30.4 pg Mean Corpuscular Hemoglobin Concent 33.2 g/dl Platelet Count 214 K/uL Mean Platelet Volume 9.2 fL RDW Standard Deviation 42.6 fL RDW Coefficient of Variation 12.6 % Neutrophils % (Manual) 27.8 % Lymphocytes % (Manual) 53.1 % Variant Lymphocytes % (manual) 11.3 % Monocytes % (Manual) 5.2 % Eosinophils % (Manual) 1.7 % Basophils % (Manual) 0.9 % Neutrophils # (Manual) 1.48 K/uL Total Absolute Neutrophils 1.48 K/uL Lymphocytes # (Manual) 2.83 K/uL Absolute Variant Lymphocytes 0.60 K/uL Total Absolute Lymphocytes 3.43 K/uL Monocytes # (Manual) 0.28 K/uL Eosinophils # (Manual) 0.09 K/uL Basophils # (Manual) 0.05 K/uL Red Blood Cell Morphology Unremarkable Sodium Level 139 mmol/L Potassium Level 3.8 mmol/L Chloride Level 107 mmol/L Carbon Dioxide Level 27 mmol/L Anion Gap 5.0 mmol/L Blood Urea Nitrogen 7 mg/dl Creatinine 0.74 mg/dl Est Creatinine Clear Calc Drug Dose 101.1 ml/min Estimated GFR () 136.1 Estimated GFR (Non- 117.4 BUN/Creatinine Ratio 9.5 Random Glucose 83 mg/dl Calcium Level 8.0 mg/dl Total Bilirubin 0.4 mg/dl Aspartate Amino Transf (AST/SGOT) 12 U/L Alanine Aminotransferase (ALT/SGPT) 18 U/L Alkaline Phosphatase 56 U/L Total Protein 6.8 gm/dl Albumin 2.9 gm/dl Globulin 3.9 gm/dl Albumin/Globulin Ratio 0.7 Assessment and Plan 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 Sepsis POA: Viral vs Atypical PNA and Pharyngitis; + EBV- IMPROVING - CT supports possible pneumonia vs inflammatory reaction - given clinical picture will treat for pneumonia - Atypical reference labs pending - place Adenovirus swab order - Doxycyline 100 mg BID x 14 day total course - ID following - discussed with Dr. Wilson with the above recommendations Hypotension: - Reports she is normally 120/80 - has been stable and asymptomatic - will obtain AM cortisol - Continue NSS at 100 mL/hr Seizure Disorder S/P VNS: Follows with [facility]: - Keppra 1500 mg AM and 2000 mg PM, Banzel 800 mg AM and 1200 PM, and Clonazepam PRN Asthma without Exacerbation: - Symbicort 2 puffs BID and Zyrtec 10 mg daily Poor Appetite/Poor Weight Gain: - Marinol 5 mg BID PRN and Remeron 15 mg HS DVT Prophylaxis: Heparin 5000 units Q8H Code Status: FULL RESUSCITATION Disposition: - [employer] Student - has class until 03/14 then is returning home to [place] - Pending tolerance of oral conversion - plan to D/C tomorrow - PCP is Dr. Jennifer Johnson Discharge planning: home
[2017-03-07] MEDS ORDERED: VANCOMYCIN TROUGH ONE (19:30)
[2017-03-07 19:56] VITALS: BP 101/60; PULSE 87; TEMP 36.9; O2SAT 97
--- NOTE | 2017-03-07 20:38 | Infectious Disease Progress Nt ---
Progress Note Date of Service Mar 07, 2017. Subjective Pt evaluation today including: conversation w/ patient, conversation w/ family , physical exam, chart review, lab review, review of studies, conversation w/ [employer] product consultant, review of inpatient medication list Patient feeling better today sore throat improved. Starting to eat better. Remains afebrile. Cultures remain negative so far. Serologies are pending. All Other Systems: Reviewed and Negative Medications Current Inpatient Medications Medications (Trade) Dose Ordered Sig/Prasanth Route Start Time Stop Time Status Last Admin Dose Admin Acetaminophen (Tylenol Tab) 650 mg Q4H PRN PO 03/04/17 18:30 04/03/17 18:29 03/06/17 18:03 650 MG Al Hydrox/Mg Hydrox/Simethicone (Maalox Max Susp) 15 ml Q4H PRN PO 03/04/17 18:30 04/03/17 18:29 Magnesium Hydroxide (Milk Of Magnesia Susp) 30 ml Q6H PRN PO 03/04/17 18:30 04/03/17 18:29 Polyethylene (Miralax Powder Packet) 17 gm DAILY PRN PO 03/04/17 18:30 04/03/17 18:29 Ondansetron HCl (Zofran Inj) 4 mg Q6H PRN IV 03/04/17 18:30 04/03/17 18:29 Sodium Chloride 1,000 ml @ 100 mls/hr Q10H IV 03/04/17 20:15 04/03/17 20:14 03/07/17 09:48 100 MLS/HR Ioversol (Optiray 320) 100 ml UD PRN IV 03/04/17 18:45 03/08/17 18:44 Budesonide/ Formoterol Fumarate (Symbicort 80/ 4.5 Inh) 2 puffs BID INH 03/04/17 21:00 04/03/17 20:59 03/07/17 09:40 2 PUFFS Cetirizine HCl (zyrTEC TAB) 10 mg DAILY PO 03/05/17 09:00 04/04/17 08:59 03/07/17 09:42 10 MG Clonazepam (Klonopin Tab) 0.5 mg HS PO 03/04/17 21:00 04/03/17 20:59 03/06/17 20:45 0.5 MG Clonazepam (Klonopin Tab) 1 mg UD PRN PO 03/04/17 19:15 04/03/17 19:14 Dronabinol (Marinol Cap) 5 mg BID PRN PO 03/04/17 19:15 04/03/17 19:14 Levothyroxine Sodium (Synthroid Tab) 75 mcg DAILYBB PO 03/05/17 06:00 04/04/17 06:59 03/07/17 06:08 75 MCG Mirtazapine (Remeron Tab) 15 mg HS PO 03/04/17 21:00 04/03/17 20:59 03/04/17 22:19 15 MG Montelukast Sodium (Singulair Tab) 10 mg DAILY PO 03/05/17 09:00 04/04/17 08:59 03/07/17 09:42 10 MG Multivitamins/ Minerals (Multivitamin W/ Minerals Tab) 1 tab DAILY PO 03/05/17 09:00 04/04/17 08:59 03/07/17 09:43 1 TAB Non-Formulary Medication (Rufinamide (Banzel)) 800 mg QAM PO 03/05/17 09:00 04/04/17 08:59 03/07/17 09:44 800 MG Non-Formulary Medication (Rufinamide (Banzel)) 1,200 mg QPM PO 03/04/17 21:00 04/03/17 20:59 03/06/17 20:45 1,200 MG Miscellaneous (Iv Fluids Completed) 1 ea PRN PRN N/A 03/04/17 20:00 03/04/18 19:59 Heparin Sodium (Porcine) (Heparin Sq 5000 Unit/0.5ml) 5,000 unit Q8 SQ 03/05/17 22:00 04/04/17 21:59 03/07/17 14:33 5,000 UNIT Lactobacillus Acidophilus (Floranex Tab) 4 tab TIDM PO 03/06/17 07:30 04/05/17 07:29 03/07/17 17:26 4 TAB Levetiracetam (Keppra Tab) 2,000 mg QPM PO 03/07/17 21:00 04/06/17 20:59 Levetiracetam (Keppra Tab) 1,500 mg QAM PO 03/08/17 09:00 04/07/17 08:59 Doxycycline Hyclate (Vibramycin Cap) 100 mg BID PO 03/07/17 21:00 03/14/17 20:59 Objective Vital Signs Date Time Temp Pulse Resp B/P (MAP) Pulse Ox O2 Delivery O2 Flow Rate FiO2 03/07/17 19:56 36.9 87 16 101/60 (74) 97 Room Air 03/07/17 16:00 Room Air 03/07/17 15:39 36.5 94 17 102/53 (69) 98 Room Air 03/07/17 12:00 Room Air 03/07/17 11:00 36.7 87 20 101/52 (68) 97 Room Air 03/07/17 08:00 Room Air 03/07/17 07:45 36.5 87 16 89/49 (62) 96 Room Air 80/39 (53) 03/07/17 04:00 Room Air 03/07/17 02:16 36.5 98 16 122/71 (88) 97 Room Air 03/07/17 00:16 36.8 91 19 105/54 (71) 97 Room Air 03/07/17 00:00 Room Air Physical Exam General Appearance: WD/WN, no apparent distress Eyes: normal inspection ENT: + pharyngeal erythema, + tonsillar exudate Neck: supple, + adenopathy present Respiratory/Chest: chest non-tender, lungs clear, normal breath sounds, no respiratory distress Cardiovascular: regular rate, rhythm, no gallop, no murmur Abdomen: normal bowel sounds, non tender, soft, no organomegaly Extremities: non-tender, no pedal edema, no calf tenderness Neurologic/Psychiatric: alert, oriented x 3 Skin: normal color, no rash Laboratory Results RUN DATE: 03/07/17 [facility] PAGE 1 RUN TIME: 0700 Specimen Inquiry PATIENT: SHANT BARRIENTOS LOC: Sea # : [id number] AGE/SX: 21/F ROOM: E207 REG : 03/05/[address]: Abdi Hanson : 1995 BED: 1 DIS : STATUS: ADM IN TLOC: SPEC #: [id number] YAHIR: 03/05/17 STATUS: RES REQ #: [id number] RECD: 03/05/[address]: Abdi Hanson MD SOURCE: BLOOD ENTR: 03/05/17-[address]: Chito Wilson MD SPDC: Kevin Arguelles M.D. [facility] ORDERED: BLOOD CULTURE Procedure Result Verified Site BLD CULT Preliminary 03/07/17-699 NO GROWTH TO DATE. Last 24 Hours Test 03/07/17 05:55 03/07/17 17:30 White Blood Count 5.33 K/uL Red Blood Count 3.65 M/uL Hemoglobin 11.1 g/dL Hematocrit 33.4 % Mean Corpuscular Volume 91.5 fL Mean Corpuscular Hemoglobin 30.4 pg Mean Corpuscular Hemoglobin Concent 33.2 g/dl Platelet Count 214 K/uL Mean Platelet Volume 9.2 fL RDW Standard Deviation 42.6 fL RDW Coefficient of Variation 12.6 % Neutrophils % (Manual) 27.8 % Lymphocytes % (Manual) 53.1 % Variant Lymphocytes % (manual) 11.3 % Monocytes % (Manual) 5.2 % Eosinophils % (Manual) 1.7 % Basophils % (Manual) 0.9 % Neutrophils # (Manual) 1.48 K/uL Total Absolute Neutrophils 1.48 K/uL Lymphocytes # (Manual) 2.83 K/uL Absolute Variant Lymphocytes 0.60 K/uL Total Absolute Lymphocytes 3.43 K/uL Monocytes # (Manual) 0.28 K/uL Eosinophils # (Manual) 0.09 K/uL Basophils # (Manual) 0.05 K/uL Red Blood Cell Morphology Unremarkable Sodium Level 139 mmol/L Potassium Level 3.8 mmol/L Chloride Level 107 mmol/L Carbon Dioxide Level 27 mmol/L Anion Gap 5.0 mmol/L Blood Urea Nitrogen 7 mg/dl Creatinine 0.74 mg/dl Est Creatinine Clear Calc Drug Dose 101.1 ml/min Estimated GFR () 136.1 Estimated GFR (Non- 117.4 BUN/Creatinine Ratio 9.5 Random Glucose 83 mg/dl Calcium Level 8.0 mg/dl Total Bilirubin 0.4 mg/dl Aspartate Amino Transf (AST/SGOT) 12 U/L Alanine Aminotransferase (ALT/SGPT) 18 U/L Alkaline Phosphatase 56 U/L Total Protein 6.8 gm/dl Albumin 2.9 gm/dl Globulin 3.9 gm/dl Albumin/Globulin Ratio 0.7 Assessment and Plan 21-year-old female with seizure disorder with more than 1 month of respiratory symptoms in pharyngitis without response to antibiotics. CT scan suggestive of lower lobe interstitial pneumonitis. This raises possibility of atypical process such as mycoplasma, or viral infections such as CMV or less likely EBV. Also must consider noninfectious process such as autoimmune type disease given family history of dermatomyositis. Has shown some clinical improvement since admission, suspect either viral process or atypical infection such as mycoplasma. Would recommend continuation of doxycycline for 2 week course.
[2017-03-07] MEDS ORDERED: LEVETIRACETAM 500 MG TAB PO SCH (21:00)
[2017-03-07] MEDS: CLONAZEPAM 0.5 MG TAB PO SCH (21:08)
[2017-03-07] MEDS: MIRTAZAPINE TAB 15 MG TAB PO SCH (21:09)
[2017-03-07] MEDS: DOXYCYCLINE HYCLATE 100 MG CAP PO SCH (21:11)
[2017-03-07] MEDS: RUFINAMIDE PO SCH (21:12)
[2017-03-08 00:44] VITALS: BP 107/60; PULSE 96; TEMP 36.6; O2SAT 98
[2017-03-08 04:02] VITALS: BP 97/46; PULSE 75; TEMP 36.4; O2SAT 97
[2017-03-08] MEDS: LEVOTHYROXINE 75 MCG TAB PO SCH (06:09)
[2017-03-08] MEDS: HEPARIN SOD 5000 UNIT/0.5 ML CARP SQ SCH (06:10)
[2017-03-08 06:47] LABS: HEMATOCRIT 33.9 % (37-47); MEAN CELL VOLUME 91.9 fL (80-100); MEAN CORPUSCULAR HEMOGLOBIN 29.8 pg (25-34); MEAN CORPUSCULAR HGB CONC 32.4 g/dl (32-36); MEAN PLATELET VOLUME 9.3 fL (7.4-10.4); PLATELET COUNT 242 K/uL (130-400); RED BLOOD COUNT 3.69 M/uL (4.2-5.4); WHITE BLOOD COUNT 5.61 K/uL (4.8-10.8)
[2017-03-08 07:16] LABS: BUN/CREATININE RATIO 15.3 (10-20); CALCIUM 8.5 mg/dl (8.5-10.1); CREATININE 0.7 mg/dl (0.60-1.20); POTASSIUM 3.7 mmol/L (3.5-5.1)
[2017-03-08 07:55] VITALS: BP 96/64; PULSE 83; TEMP 36.3; O2SAT 99
[2017-03-08] MEDS ORDERED: LEVETIRACETAM 500 MG TAB PO SCH (09:00)
[2017-03-08] MEDS: RUFINAMIDE 800 MG PO SCH (09:00)
[2017-03-08] MEDS: LACTOBACILLUS ACIDOPHILUS (FLORANEX) TAB PO SCH ×2 (09:31→12:42)
[2017-03-08] MEDS: CEROVITE ADV FORMULA TAB PO SCH (09:31)
[2017-03-08] MEDS: MONTELUKAST SOD 10 MG TAB PO SCH (09:31)
[2017-03-08] MEDS: DOXYCYCLINE HYCLATE 100 MG CAP PO SCH (09:31)
[2017-03-08] MEDS: BUDESONIDE/FORMOTEROL FUMARATE 80/4.5 60 PUFFS/INHALER INH SCH (09:34)
[2017-03-08] MEDS: CETIRIZINE HCL 10 MG TAB PO SCH (09:34)
[2017-03-08] MEDS ORDERED: NURSING VERBAL MED ORDER ONE (09:45)
[2017-03-08] MEDS ORDERED: IBUPROFEN 600 MG TAB PO ONE (10:00)
[2017-03-08] MEDS ORDERED: LCTX PO (10:06)
[2017-03-08] MEDS ORDERED: DXY100 PO (10:06)
--- NOTE | 2017-03-08 10:14 | Discharge Instructions ---
Discharge Instructions Date of Service Mar 08, 2017. Admission Reason for Admission: Fever, Leukocytosis, Seizure Discharge Discharge Diagnosis / Problem: Atypical Pneumonia Discharge Goals Goal(s): Decrease discomfort, Improve function, Increase independence Activity Recommendations Activity Limitations: resume your previous activity . 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 Sepsis: Viral vs Atypical PNA and Pharyngitis - IMPROVING - CT supports possible pneumonia vs inflammatory reaction but given your fever and symptoms this suggests this is a bacterial cause - Atypical reference labs pending including Mycoplasma, Adenovirus, Flu (this is a more involved tests as your first was negative) - Doxycycline 100 mg twice a day to complete a 14 day course. You had today's dose this morning and will only need to take on tonight then resume twice a day on 03/09 - You may use your Naproxen if you still have this or use over the counter ibuprofen for body aches and headache Hypotension: Low Blood Pressure - This may be a mix of poor oral intake due to illness/dehydration - We checked a cortisol level and it was low this morning - we normally expect this to be higher - You were recently on steroids and can develop what is called adrenal insufficiency due to recent steroid use. - Given your history of poor weight gain/lack of appetite, family history of autoimmune issues we would recommend that you follow-up with your family doctor and have a referral placed to your junior systems engineer for further testing Seizure Disorder S/P VNS: Follows with [facility]: - Continue your home medications as prescribed and continue your routine follow- up with your neurologist Please return if you feel that your symptoms are worsening and if you develop dizziness, lightheadedness, feeling like you are going to pass out. Would go to [facility] on Tuesday and have them check your blood pressure. If this is still low or you are having symptoms like lightheadedness or dizziness would recommend coming back to the hospital. May need to consider some steroids at that time. "Please, follow up at [facility] on TuesdayMarch 11 at 8:00 am. *If you need to change this appointment you can call the clinic at [phone]. Please, follow up with Dr. Jennifer Johnson on TuesdayMarch 22 at 9:30 am. *If you need to change this appointment you can call the office at [phone]. " I will fax dc summary to Dr. Johnson and [facility]. Current Hospital Diet Patient's current hospital diet: Regular Diet Discharge Diet Recommended Diet: Regular Diet Pending Studies Studies pending at discharge: yes List of pending studies: Mycoplasma Adenovirus Reflex PCR Influenza Medical Emergencies . Who to Call and When: Medical Emergencies: If at any time you feel your situation is an emergency, please call 911 immediately. . Non-Emergent Contact Non-Emergency issues call your: Primary Care Provider Call Non-Emergent contact if: you have a fever, your pain is concerning you, you have any medication questions . . "Provider Documentation" section prepared by Amanda Kumar. . VTE Core Measure Inpt VTE Proph given/why not?: SCD's
[2017-03-08] MEDS: SODIUM CHLORIDE 0.9% 1000ML 1,000 ML IV SCH (10:15)
[2017-03-08] MEDS ORDERED: IBUPROFEN 600 MG TAB PO PRN (10:15)
--- NOTE | 2017-03-08 10:23 | Discharge Summary ---
Discharge Summary Date of Service Mar 08, 2017. Discharge Summary Admission Date: Mar 05, 2017 at 16:12 Discharge Date: Mar 08, 2017 Discharge Disposition: Home Principal Diagnosis: Sepsis from Possible Atypical Pneumonia Problems/Secondary Diagnoses: 1. Seizure Disorder 2. Hypothyroidism 3. Anxiety/Depression 4. Poor Appetite/Poor Weight Gain 5. Asthma Procedures: CT SCAN OF THE NECK WITH IV CONTRAST FINDINGS: Soft tissues: An electronic device is present in the left upper chest. The lead extends into the left neck. Pharynx: There is thickening and edema with mucosal hyperemia involving the pharyngeal soft tissues. There are tonsils are enlarged and heterogeneous. The appearance is consistent with a nonspecific pharyngitis/tonsillitis. No collection is seen to indicate abscess. The epiglottis is normal. There is mild edema of the retropharyngeal soft tissues. The pharyngeal airway is widely patent. There is no evidence of mass lesion. The vocal cords are symmetric. The parapharyngeal fat is well maintained. Lymphadenopathy: Mildly enlarged cervical lymph nodes measure up to 1.6 cm in length. A left cervical chain node on image #78 measures 1.8 cm in length. Thyroid: Normal in size and attenuation. Salivary glands: The parotid and submandibular glands are within normal limits. Brain parenchyma: The visualized brain parenchyma at the skull base is normal in appearance. Vascular structures: The carotid arteries and jugular veins are widely patent bilaterally. Skeletal structures: Imaged portions of the calvarium at the skull base are within normal limits. The cervical spine appears intact. Orbits: The bony orbits are intact. Orbital contents are normal in appearance. Sinuses and mastoids: Trace mucosal thickening is seen in the maxillary antra. The remaining paranasal sinuses are clear. The mastoid air cells are well pneumatized. Lung apices: Visualized apical lung parenchyma is clear. IMPRESSION: 1. Findings are consistent with a nonspecific tonsillitis/pharyngitis. There is also mild edema of the retropharyngeal soft tissues. No organized fluid collection is seen to indicate abscess. 2. Mildly enlarged cervical lymph nodes are likely on a reactive basis. CT SCAN OF THE CHEST WITH IV CONTRAST FINDINGS: Soft tissues: An electronic device is present in the left chest wall. A lead extends into the left neck. Thyroid: Imaged portions of the thyroid gland are normal in size and attenuation. Thoracic aorta: The thoracic aorta is normal in caliber and demonstrates standard 3-vessel arch anatomy. No dissection is seen. Pulmonary vasculature: The pulmonary trunk is normal in caliber. There are no filling defects identified in the central pulmonary vessels to indicate pulmonary embolus. Note that this examination was not protocoled for evaluation of the pulmonary arteries. Heart: The heart is normal in size and configuration, and without pericardial effusion. Lungs and pleural spaces: There is mild patchy groundglass change present in the lower lobes bilaterally, left greater than right. This likely represents an infectious/inflammatory pneumonitis. No lobar consolidation or pleural effusion is seen. The trachea and central airways are clear. Mediastinum: There is no mediastinal lymphadenopathy. Joceline: Clear. Axillae: There is no axillary lymphadenopathy. Upper abdomen: Partially visualized upper abdominal viscera is within normal limits. Skeletal structures: No lytic or blastic bony lesions are seen. IMPRESSION: There is mild patchy groundglass change present in the lower lobes bilaterally. This is consistent with a nonspecific infectious/inflammatory pneumonitis. Consultations: 1. Infectious Disease - Dr. Wilson Medication Reconciliation New Medications: Doxycycline Hyclate (Doxycycline Hyclate) 100 Mg Cap 100 MG PO BID, #20 CAP Take one dose tonight /. Then continue twice a day until all pills complete. Lactobacillus Acidophilus (Floranex) 1 Tab Tab 4 TAB PO TIDM for 20 Days, TAB Continued Medications: Biotin (Biotin 5000) 5 Mg Cap 1 CAP PO DAILY Budesonide/Formoterol Fumarate (Symbicort 80/4.5 Inhaler) 120 Puffs/ Aero 2 PUFFS INH BID, GM 5 Refills Calcium Carbonate-Cholecalcife (Calcium Plus Vitamin D3) 1 Cap Cap 2 CAP PO DAILY Cetirizine (Zyrtec) 10 Mg Tab 10 MG PO DAILY, TAB Cholecalciferol (Vitamin D3) 1,000 Unit Tab 1 TAB PO DAILY, TAB Clonazepam (Klonopin) 0.5 Mg Tab 0.5 MG PO HS, TAB Clonazepam (Klonopin) 1 Mg Tab PO UD, TAB RESCUE DOSE Dronabinol (Dronabinol) 2.5 Mg Cap 5 MG PO BID PRN for Appetite Stimulation Levetiracetam (Keppra) 500 Mg Tab 3 TAB PO QAM, TAB Levetiracetam (Keppra) 500 Mg Tab 4 TAB PO QPM, TAB Levonorgestrel (Iud) (Mirena) 20 Mcg/24 Hr Iud Levothyroxine Sodium (Synthroid) 50 Mcg Tab 75 MCG PO DAILY Melatonin (Kp Melatonin) 3 Mg Tab 1 TAB PO HS PRN for Sleep, TAB Mirtazapine (Remeron) 15 Mg Tab 1 TAB PO HS, TAB 3 Refills Montelukast Sodium (Singulair) 10 Mg Tab 1 TAB PO DAILY, TAB 1 Refill Multiple Vitamins W/ Minerals (Womens One Daily) 1 Tab Tab 1 TAB PO DAILY Naproxen (Naproxen) 500 Mg Tab 1 TAB PO BID, TAB Polyethylene Glycol 3350 (Miralax) 1 Pow Pow 17 GM PO DAILY, GM Rufinamide (Banzel) 200 Mg Tab 800 MG PO DAILY in AM Rufinamide (Banzel) 400 Mg Tab 1200 MG PO DAILY at PM Discharge Exam Review of Systems: Constitutional: + weakness, + fatigue, + problem reported (headache), No fever, No chills ENT: + sore throat (resolved), No nasal symptoms, No trouble swallowing Respiratory: + cough, No shortness of breath Cardiovascular: No chest pain, No palpitations Abdomen: + problem reported (intermittent loose stool), No pain, No nausea, No vomiting, No diarrhea, No constipation Musculoskeletal: + problem reported (generalized body aches) Genitourinary - Female: No dysuria Neurologic: No balance problems Hematologic / Lymphatic: No abnormal bleeding/bruising, No clotting problems Integumentary: No rash Physical Exam: General Appearance: WD/WN, no apparent distress, + thin Eyes: sclerae normal ENT: hearing grossly normal, + pharyngeal erythema (mild but improved; exudates resolved) Neck: supple, no JVD, trachea midline Respiratory/Chest: lungs clear, normal breath sounds, no respiratory distress, no accessory muscle use Cardiovascular: regular rate, rhythm, no gallop, no murmur Abdomen / GI: normal bowel sounds, non tender, soft Extremities: no calf tenderness, no pedal edema Neurologic/Psychiatric: alert, normal mood/affect, oriented x 3 Skin: normal color, warm/dry Hospital Course ADMISSION: 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 Patient normally has seizures monthly however now has them approx 3-4 times a month since starting school. She does report that sleep deprivation and stress increases her seizures which correlates with being a college student. She had a seizure around 0800 this AM and lasted approx. 3 minutes per roommate. Had associated vomiting and did bite her tongue. She states that post-ictal state was more prolonged then what she has seen this patient have in the past. It was approximately 30-45 minutes but she was more confused then she normally is. She appeared to have a glazed-over look and they were concerned she might have another seizure. Roommate states she has not had status epilepticus that she has witnessed. Patient and roommate state that the seizures have been changing with the example of her head turns to the right now instead of the left. Patient states the majority of her seizures are grand mal but does occ. have partial seizures that she is aware of. She follows with [facility] for her neurologist (Dr. Gaxiola and Dr. Arrington). She resides in [place], [place]. She had a VNS placed prior to arriving to school and reports it appears to be pushing into her skin more and does cause some discomfort. She is currently on Banzel, Keppra, and Clonazepam. She reports her Banzel was increased approx 1 week ago to 800 mg in AM and 1200 mg PM. She reports having a URI including cough and sore throat x 6 weeks. Also complaining of generalized fatigue and body aches. She has noticed fevers over the past month but more specifically over the past three days. Max temp was 104.3 and today was 99. She was recently treated with a course of Penicillin and Omnicef for presumed pneumonia but continues to have fevers. Completed Abx could x 4 days ago. She does have associated poor appetite due to nausea. She chronically has had issues gaining weight and has been on Marinol PRN. Roommates at bedside and avoided asking if she has had any history of eating disorders. HOSPITAL COURSE: Ms. Aponte was admitted for Sepsis due to Possible Atypical PNA and Pharyngitis. She has responded to Doxycycline 100 mg BID with improvement in cough and sore throat. Atypical organism labs and viral titers sent as reference labs. At another facility she did test positive for EBV. She was seen by Infectious Disease and plan to continue Doxycycline 100 mg BID to complete a 14 day course. She has had no further seizures while admitted to the hospital. She will continue on her home medications and recommend routine follow-up with Neurologist in [place]. Discussing with patient and her father, she notes he BP has been lower than normal. Given her long history of poor appetite/poor weight gain we did check an AM cortisol level which was low at 2. She was on a 5 day steroid taper a few weeks back when these symptoms started, however this is unlikely to cause a secondary adrenal insufficiency. Recommendations given to see her PCP and see an business objects report developer to get further testing. She is asymptomatic from a hypotensive standpoint. She continues to have generalized fatigue but is reporting it is improving. Cortisol level may be skewed due to current illness. She was instructed to follow-up with S on Sunday 03/11 for BP check and recommended to return to the hospital if she becomes symptomatic. She was established with a PCP appointment in [place]. Total Time Spent: Greater than 30 minutes This includes examination of the patient, discharge planning, medication reconciliation, and communication with other providers. Discharge Instructions Please refer to the electronic Patient Visit Report (Discharge Instructions) for additional information. Additional Copies To [facility]
[2017-03-08 11:07] LABS: LEGIONELLA ANTIGEN NOT DETECTED (NOT DETECTED)
[2017-03-08 11:54] VITALS: BP 101/59; PULSE 74; TEMP 36.9; O2SAT 99
[2017-03-08] MEDS ORDERED: NAPROXEN 250 MG TAB PO ONE (12:00)
--- NOTE | 2017-03-08 12:12 | Infectious Disease Progress Nt ---
Progress Note Date of Service Mar 08, 2017. Subjective Pt evaluation today including: conversation w/ patient, conversation w/ family , physical exam, chart review, lab review, review of studies, conversation w/ search consultant, review of inpatient medication list Patient continues to show improvement. Still having episodes of low blood pressure with dizziness. Pharyngitis improved, appetite better. No fever. White count remains normal. All Other Systems: Reviewed and Negative Medications Current Inpatient Medications Medications (Trade) Dose Ordered Sig/Prasanth Route Start Time Stop Time Status Last Admin Dose Admin Acetaminophen (Tylenol Tab) 650 mg Q4H PRN PO 03/04/17 18:30 04/03/17 18:29 03/06/17 18:03 650 MG Al Hydrox/Mg Hydrox/Simethicone (Maalox Max Susp) 15 ml Q4H PRN PO 03/04/17 18:30 04/03/17 18:29 Magnesium Hydroxide (Milk Of Magnesia Susp) 30 ml Q6H PRN PO 03/04/17 18:30 04/03/17 18:29 Polyethylene (Miralax Powder Packet) 17 gm DAILY PRN PO 03/04/17 18:30 04/03/17 18:29 Ondansetron HCl (Zofran Inj) 4 mg Q6H PRN IV 03/04/17 18:30 04/03/17 18:29 Sodium Chloride 1,000 ml @ 100 mls/hr Q10H IV 03/04/17 20:15 04/03/17 20:14 03/08/17 10:15 100 MLS/HR Ioversol (Optiray 320) 100 ml UD PRN IV 03/04/17 18:45 03/08/17 18:44 Budesonide/ Formoterol Fumarate (Symbicort 80/ 4.5 Inh) 2 puffs BID INH 03/04/17 21:00 04/03/17 20:59 03/08/17 09:34 2 PUFFS Cetirizine HCl (zyrTEC TAB) 10 mg DAILY PO 03/05/17 09:00 04/04/17 08:59 03/08/17 09:34 10 MG Clonazepam (Klonopin Tab) 0.5 mg HS PO 03/04/17 21:00 04/03/17 20:59 03/07/17 21:08 0.5 MG Clonazepam (Klonopin Tab) 1 mg UD PRN PO 03/04/17 19:15 04/03/17 19:14 Dronabinol (Marinol Cap) 5 mg BID PRN PO 03/04/17 19:15 04/03/17 19:14 Levothyroxine Sodium (Synthroid Tab) 75 mcg DAILYBB PO 03/05/17 06:00 04/04/17 06:59 03/08/17 06:09 75 MCG Mirtazapine (Remeron Tab) 15 mg HS PO 03/04/17 21:00 04/03/17 20:59 03/07/17 21:09 15 MG Montelukast Sodium (Singulair Tab) 10 mg DAILY PO 03/05/17 09:00 04/04/17 08:59 03/08/17 09:31 10 MG Multivitamins/ Minerals (Multivitamin W/ Minerals Tab) 1 tab DAILY PO 03/05/17 09:00 04/04/17 08:59 03/08/17 09:31 1 TAB Non-Formulary Medication (Rufinamide (Banzel)) 800 mg QAM PO 03/05/17 09:00 04/04/17 08:59 03/08/17 09:00 800 MG Non-Formulary Medication (Rufinamide (Banzel)) 1,200 mg QPM PO 03/04/17 21:00 04/03/17 20:59 03/07/17 21:12 1,200 MG Miscellaneous (Iv Fluids Completed) 1 ea PRN PRN N/A 03/04/17 20:00 03/04/18 19:59 Heparin Sodium (Porcine) (Heparin Sq 5000 Unit/0.5ml) 5,000 unit Q8 SQ 03/05/17 22:00 04/04/17 21:59 03/08/17 06:10 5,000 UNIT Lactobacillus Acidophilus (Floranex Tab) 4 tab TIDM PO 03/06/17 07:30 04/05/17 07:29 03/08/17 09:31 4 TAB Levetiracetam (Keppra Tab) 2,000 mg QPM PO 03/07/17 21:00 04/06/17 20:59 03/07/17 21:09 2,000 MG Levetiracetam (Keppra Tab) 1,500 mg QAM PO 03/08/17 09:00 04/07/17 08:59 03/08/17 09:32 1,500 MG Doxycycline Hyclate (Vibramycin Cap) 100 mg BID PO 03/07/17 21:00 03/14/17 20:59 03/08/17 09:31 100 MG Ibuprofen (Motrin Tab) 600 mg QID PRN PO 03/08/17 10:15 04/07/17 10:14 Objective Vital Signs Date Time Temp Pulse Resp B/P (MAP) Pulse Ox O2 Delivery O2 Flow Rate FiO2 03/08/17 11:54 36.9 74 16 101/59 (73) 99 03/08/17 08:00 Room Air 03/08/17 07:55 36.3 83 18 96/64 (75) 99 03/08/17 04:02 36.4 75 16 97/46 (63) 97 Room Air 03/08/17 04:00 Room Air 03/08/17 00:44 36.6 96 16 107/60 (76) 98 Room Air 03/08/17 00:00 Room Air 03/07/17 20:00 Room Air 03/07/17 19:56 36.9 87 16 101/60 (74) 97 Room Air 03/07/17 16:00 Room Air 03/07/17 15:39 36.5 94 17 102/53 (69) 98 Room Air Physical Exam General Appearance: WD/WN, no apparent distress Eyes: normal inspection, EOMI, sclerae normal ENT: normal ENT inspection, + pharyngeal erythema (Improving) Neck: supple, thyroid normal, trachea midline, + adenopathy present Respiratory/Chest: chest non-tender, lungs clear, normal breath sounds, no respiratory distress Cardiovascular: regular rate, rhythm, no gallop, no murmur Abdomen: normal bowel sounds, non tender, soft, no organomegaly Extremities: non-tender, no calf tenderness Neurologic/Psychiatric: alert, oriented x 3 Skin: normal color, warm/dry, no rash Lymphatic: no adenopathy Laboratory Results Last 24 Hours Test 03/07/17 17:30 03/08/17 06:14 White Blood Count 5.61 K/uL Red Blood Count 3.69 M/uL Hemoglobin 11.0 g/dL Hematocrit 33.9 % Mean Corpuscular Volume 91.9 fL Mean Corpuscular Hemoglobin 29.8 pg Mean Corpuscular Hemoglobin Concent 32.4 g/dl RDW Standard Deviation 43.2 fL RDW Coefficient of Variation 12.8 % Platelet Count 242 K/uL Mean Platelet Volume 9.3 fL Sodium Level 142 mmol/L Potassium Level 3.7 mmol/L Chloride Level 109 mmol/L Carbon Dioxide Level 25 mmol/L Anion Gap 8.0 mmol/L Blood Urea Nitrogen 11 mg/dl Creatinine 0.70 mg/dl Est Creatinine Clear Calc Drug Dose 106.0 ml/min Estimated GFR () 144.6 Estimated GFR (Non- 124.7 BUN/Creatinine Ratio 15.3 Random Glucose 82 mg/dl Calcium Level 8.5 mg/dl Cortisol AM Sample 2.00 mcg/dl Assessment and Plan 21-year-old female with seizure disorder with more than 1 month of respiratory symptoms in pharyngitis without response to antibiotics. CT scan suggestive of lower lobe interstitial pneumonitis. This raises possibility of atypical process such as mycoplasma, or viral infections such as CMV or less likely EBV. Also must consider noninfectious process such as autoimmune type disease given family history of dermatomyositis. Has shown some clinical improvement since admission, suspect either viral process or atypical infection such as mycoplasma. Would recommend continuation of doxycycline for 2 week course.
[2017-03-08 14:18] VITALS: BP 101/59; PULSE 74; TEMP 36.9; O2SAT 99
[2017-03-09 12:31] LABS: INFLUENZA A RAPID CULTURE NONE DETECTED (NONE DETECTED); INFLUENZA B RAPID CULTURE NONE DETECTED (NONE DETECTED); INFLUENZA VIRUS CULT SOURCE OTHER-OROPHARYNX
== END 2017-03-08 14:58 | disposition home or self-care (01) | DRG 871 ==
LOC: C.EDB 10:38 → C.2E 18:38 → ENRESERV 19:16 → OBSVTOIN 03-05 16:12 → C.2E 03-06 21:01
PROVIDERS: ADMIT Internal Medicine; ATTEND Internal Medicine Sports Medicine
PROC: 009U3ZX Drainage of Spinal Canal, Percutaneous Approach, Diagnostic (ICD-10-PCS; principal; 2017-03-04)
DX: A41.9 Sepsis, unspecified organism (principal); J18.9 Pneumonia, unspecified organism; R65.20 Severe sepsis without septic shock; J06.9 Acute upper respiratory infection, unspecified; I95.9 Hypotension, unspecified; G40.909 Epilepsy, unspecified, not intractable, without status epilepticus; J45.909 Unspecified asthma, uncomplicated; R63.0 Anorexia; F32.9 Major depressive disorder, single episode, unspecified; F41.9 Anxiety disorder, unspecified; E03.9 Hypothyroidism, unspecified; Z96.9 Presence of functional implant, unspecified; Z86.19 Personal history of other infectious and parasitic diseases; Z79.1 Long term (current) use of non-steroidal anti-inflammatories (NSAID); Z79.899 Other long term (current) drug therapy; Z88.1 Allergy status to other antibiotic agents; Z82.0 Family history of epilepsy and other diseases of the nervous system; Z83.2 Family history of diseases of the blood and blood-forming organs and certain disorders involving the immune mechanism; Z83.3 Family history of diabetes mellitus; Z82.49 Family history of ischemic heart disease and other diseases of the circulatory system; Z83.6 Family history of other diseases of the respiratory system; Z84.1 Family history of disorders of kidney and ureter

== ENCOUNTER 2017-03-10 09:25 | Emergency (ER) | payer BC ==
[~2017-03-10] VITALS: Ht 160 cm; Wt 52.2 kg
[~2017-03-10 09:25] MED LIST: BIOTCAP2 PO; CALCCAP15 PO; CETI10TA84 PO; CHOL1000 PO; CLON0.5T3 PO; CLON1TAB3 PO; DXY100 PO; LCTX PO; LEVE500T13 PO; LEVO50TA PO; LEVOIUD; MELA1TAB5 PO; MIRT15TA3 PO; MONT1TAB3 PO; MRN25 PO; MULT-240 PO; NAPR500T3 PO; POLY335019 PO; RUFI400T PO; SYMIN/8045 INH; [UNRECOGNIZED DRUG - CODE] PO
[2017-03-10 09:29] VITALS: TEMP 36.8; Ht 160 cm; Wt 52.2 kg
[2017-03-10] MEDS ORDERED: SODIUM CHLORIDE 0.9% 1000ML 1,000 ML IV STA (10:00)
[2017-03-10] MEDS ORDERED: ONDANSETRON INJ 2 MG/ML 2 ML VIAL IV STA (10:00)
[2017-03-10 10:17] VITALS: O2SAT 97
--- NOTE | 2017-03-10 10:30 | DIAGNOSTIC IMAGING REPORT ---
HEAD WITHOUT CONTRAST (CT) CT DOSE: 638.56 mGycm HISTORY: Mental status change Evaluate for hemorrhage or pathology TECHNIQUE: Multiaxial CT images of the head were performed without the use of intravenous contrast. A dose lowering technique was utilized adhering to the principles of ALARA. Comparison: None. Findings: The paranasal sinuses and mastoid air cells are clear. The calvarium and skull base are intact. The ventricles and sulci are within normal limits. There is no mass, hematoma, midline shift, or acute infarct. Small focus of encephalomalacia left parietal convexity. No acute intracranial hemorrhage. No midline shift. Impression: No acute process. The above report was generated using voice recognition software. It may contain grammatical, syntax or spelling errors. Electronically signed by: Evens Anderson M.D. 03/10/2017 10:28 AM Dictated Date/Time: 03/10/2017 10:26 AM
[2017-03-10 10:35] LABS: BASO % 0.2 %; BASO ABS # 0.01 K/uL (0-0.2); COMPLETE YES; EOS % 2.7 %; HEMATOCRIT 36.8 % (37-47); IG% 0.2 %; LYMPH % 42.6 %; LYMPH ABS # 1.86 K/uL (1.2-3.4); MEAN CELL VOLUME 90.9 fL (80-100); MEAN CORPUSCULAR HEMOGLOBIN 30.6 pg (25-34); MEAN CORPUSCULAR HGB CONC 33.7 g/dl (32-36); MEAN PLATELET VOLUME 9.1 fL (7.4-10.4); MONO % 13.3 %; PLATELET COUNT 297 K/uL (130-400); RED BLOOD COUNT 4.05 M/uL (4.2-5.4); WHITE BLOOD COUNT 4.37 K/uL (4.8-10.8)
[2017-03-10 10:38] LABS: MANUAL MICROSCOPIC REQUIRED? NO; REVIEW REQ? YES; URINE APPEARANCE CLEAR (CLEAR); URINE BILIRUBIN NEG (NEG); URINE COLOR YELLOW; URINE EPITHELIAL CELL AUTO >30 /lpf (0-5); URINE NITRITE NEG (NEG); URINE SPECIFIC GRAVITY 1.026 (1.000-1.030); UROBILINOGEN NEG (NEG)
[2017-03-10 10:53] LABS: BUN/CREATININE RATIO 17.9 (10-20); CALCIUM 9.1 mg/dl (8.5-10.1); CREATININE 0.85 mg/dl (0.60-1.20); POTASSIUM 3.4 mmol/L (3.5-5.1)
[2017-03-10 10:56] LABS: ALB/GLOB RATIO 0.9 (0.9-2)
[2017-03-10] MEDS ORDERED: CLON1TAB3 PO (11:05)
[2017-03-10] MEDS ORDERED: ACET325T96 PO (11:12)
[2017-03-10] MEDS ORDERED: DOXY100C76 PO (11:14)
[2017-03-10] MEDS ORDERED: LACT1TAB4 PO (11:14)
[2017-03-10] MEDS ORDERED: CAFFEINE CITRATE 500 MG in SODIUM CHLORIDE 0.9% 1000ML 1,000 ML IV STA (11:35)
[2017-03-10] MEDS ORDERED: KETOROLAC TROMETHAMINE 30 MG/ML VIAL IV STA (11:39)
--- NOTE | 2017-03-10 11:59 | EMERGENCY ROOM VISIT NOTE ---
History First contact with patient: 09:46 Chief Complaint: HEADACHE Stated Complaint: SEVERE MIGRAINE WHEN STANDING/SITTING, BACK PAIN History of Present Illness The patient is a 22 year old female who presents to the Emergency Room with complaints of severe headache that started two days ago and has been getting progressively worse. She denies a history of frequent headaches or migraines, and states she has never had a headache like this before. She was recently admitted for infection workup, diagnosed with pneumonia, but had an LP done during her admission. Discharged home on 03/08 with doxycycline, and states that she has been generally feeling better and her cough is improving since discharge. She states that her headache is constant, pounding, "feels like my brain is spilling out," worse with standing and exertion, better with lying flat and still, 8/10. Associated nausea. She has tried Tylenol and Motrin for the headache without any relief. She has a history of seizures, she denies any seizures since her discharge from the hospital. She denies any fevers/chills, vision changes, neck stiffness, vomiting, chest pain, SOB, syncope, abdominal pain, dysuria or hematuria, or rash. Review of Systems A complete 10 point review of systems was reviewed with the patient with pertinent positives and negatives as per history of present illness. All else were negative. Past Medical/Surgical History Medical Problems: (1) Asthma (2) Seizure (3) Sepsis Family History Diabetes mellitus FH: HTN (hypertension) FH: cancer FH: kidney disease FH: lung disease FHx: seizures Heart disease Social History Smoking Status: Never Smoker Alcohol Use: none Drug Use: none Housing Status: lives with roommate Occupation Status: student Current/Historical Medications Scheduled Acetaminophen Tab (Tylenol), 325 MG PO UD Biotin (Biotin 5000), 1 CAP PO HS Budesonide/Formoterol Fumarate (Symbicort 80/4.5 Inhaler), 2 PUFFS INH BID Calcium Carbonate-Cholecalcife (Calcium Plus Vitamin D3), 2 CAP PO DAILY Cetirizine (Zyrtec), 10 MG PO DAILY Cholecalciferol (Vitamin D3), 1 TAB PO DAILY Clonazepam (Klonopin), 0.5 MG PO HS Clonazepam (Klonopin), 1 MG PO UD Doxycycline Monohydrate (Monodox), 100 MG PO BID Lactobacillus (Floranex), 4 TABS PO TIDM Levetiracetam (Keppra), 3 TAB PO QAM Levetiracetam (Keppra), 4 TAB PO QPM Levonorgestrel (Iud) (Mirena), 1 UD Levothyroxine Sodium (Synthroid), 75 MCG PO DAILY Montelukast Sodium (Singulair), 1 TAB PO DAILY Multiple Vitamins W/ Minerals (Womens One Daily), 1 TAB PO DAILY Rufinamide (Banzel), 800 MG PO DAILY Rufinamide (Banzel), 1,200 MG PO DAILY Scheduled PRN Melatonin (Kp Melatonin), 1 TAB PO HS PRN for Sleep Naproxen (Naproxen), 1 TAB PO BID PRN for Pain Polyethylene Glycol 3350 (Miralax), 17 GM PO DAILY PRN for Constipation Allergies Reviewed in chart Physical Exam Vital Signs Date Time Temp Pulse Resp B/P (MAP) Pulse Ox O2 Delivery O2 Flow Rate FiO2 03/10/17 15:16 99 18 116/55 98 03/10/17 13:09 90 18 86/46 96 Room Air 03/10/17 11:13 81 16 90/43 97 Room Air 03/10/17 10:17 97 Room Air 03/10/17 09:29 36.8 84 16 102/66 98 Room Air Physical Exam CONSTITUTIONAL: No acute distress, but appears uncomfortable and in pain. Mildly dehydrated. Alert and oriented X 4 with normal affect. HEENT: Normocephalic, atraumatic. Pupils equal, round and reactive to light, EOMI. TMs normal. Pharynx normal. Tacky mucous membranes. NECK: Supple, full active range of motion without discomfort. No neck stiffness. No cervical adenopathy. RESPIRATORY: Clear to auscultation bilaterally with no wheezing, crackles, rhonchi or stridor. Equal expansion bilaterally. CARDIOVASCULAR: Regular rate and rhythm with no murmurs, rubs or gallops. Normal peripheral perfusion. No edema. GASTROINTESTINAL: Soft, nontender, nondistended. Bowel sounds present in all quadrants. MUSCULOSKELETAL: Full range of motion of all joints without discomfort. INTEGUMENTARY: No rash or other significant dermatologic conditions noted. NEUROLOGIC: Cranial nerves II-XII grossly intact. No focal neurologic deficits noted. Normal strength and sensation all 4 extremities, no pronator drift, no facial droop. Normal gait and balance, negative Romberg. Normal finger-nose- finger testing. Medical Decision & Procedures ER Provider Diagnostic Interpretation: HEAD WITHOUT CONTRAST (CT) CT DOSE: 638.56 mGycm HISTORY: Mental status change Evaluate for hemorrhage or pathology TECHNIQUE: Multiaxial CT images of the head were performed without the use of intravenous contrast. A dose lowering technique was utilized adhering to the principles of ALARA. Comparison: None. Findings: The paranasal sinuses and mastoid air cells are clear. The calvarium and skull base are intact. The ventricles and sulci are within normal limits. There is no mass, hematoma, midline shift, or acute infarct. Small focus of encephalomalacia left parietal convexity. No acute intracranial hemorrhage. No midline shift. Impression: No acute process. Laboratory Results 03/10/17 10:14 Red Blood Count 4.05, Mean Corpuscular Volume 90.9, Mean Corpuscular Hemoglobin 30.6, Mean Corpuscular Hemoglobin Concent 33.7, Mean Platelet Volume 9.1, Neutrophils (%) (Auto) 41.0, Lymphocytes (%) (Auto) 42.6, Monocytes (%) (Auto) 13.3, Eosinophils (%) (Auto) 2.7, Basophils (%) (Auto) 0.2, Neutrophils # (Auto ) 1.79, Lymphocytes # (Auto) 1.86, Monocytes # (Auto) 0.58, Eosinophils # (Auto ) 0.12, Basophils # (Auto) 0.01 03/10/17 10:14 Test 03/10/17 10:14 03/10/17 10:22 White Blood Count 4.37 K/uL (4.8-10.8) Red Blood Count 4.05 M/uL (4.2-5.4) Hemoglobin 12.4 g/dL (12.0-16.0) Hematocrit 36.8 % (37-47) Mean Corpuscular Volume 90.9 fL (80-100) Mean Corpuscular Hemoglobin 30.6 pg (25-34) Mean Corpuscular Hemoglobin Concent 33.7 g/dl (32-36) Platelet Count 297 K/uL (130-400) Mean Platelet Volume 9.1 fL (7.4-10.4) Neutrophils (%) (Auto) 41.0 % Lymphocytes (%) (Auto) 42.6 % Monocytes (%) (Auto) 13.3 % Eosinophils (%) (Auto) 2.7 % Basophils (%) (Auto) 0.2 % Neutrophils # (Auto) 1.79 K/uL (1.4-6.5) Lymphocytes # (Auto) 1.86 K/uL (1.2-3.4) Monocytes # (Auto) 0.58 K/uL (0.11-0.59) Eosinophils # (Auto) 0.12 K/uL (0-0.5) Basophils # (Auto) 0.01 K/uL (0-0.2) RDW Standard Deviation 42.1 fL (36.4-46.3) RDW Coefficient of Variation 12.7 % (11.5-14.5) Immature Granulocyte % (Auto) 0.2 % Immature Granulocyte # (Auto) 0.01 K/uL (0.00-0.02) Anion Gap 6.0 mmol/L (3-11) Est Creatinine Clear Calc Drug Dose 87.0 ml/min Estimated GFR () 114.3 Estimated GFR (Non- 98.6 BUN/Creatinine Ratio 17.9 (10-20) Calcium Level 9.1 mg/dl (8.5-10.1) Total Bilirubin 0.2 mg/dl (0.2-1) Aspartate Amino Transf (AST/SGOT) 24 U/L (15-37) Alanine Aminotransferase (ALT/SGPT) 30 U/L (12-78) Alkaline Phosphatase 75 U/L (45-117) Total Protein 7.3 gm/dl (6.4-8.2) Albumin 3.5 gm/dl (3.4-5.0) Globulin 3.8 gm/dl (2.5-4.0) Albumin/Globulin Ratio 0.9 (0.9-2) Urine Color YELLOW Urine Appearance CLEAR (CLEAR) Urine pH 5.0 (4.5-7.5) Urine Specific [place] 1.026 (1.000-1.030) Urine Protein NEG (NEG) Urine Glucose (UA) NEG (NEG) Urine Ketones NEG (NEG) Urine Occult Blood NEG (NEG) Urine Nitrite NEG (NEG) Urine Bilirubin NEG (NEG) Urine Urobilinogen NEG (NEG) Urine Leukocyte Esterase SMALL (NEG) Urine WBC (Auto) 5-10 /hpf (0-5) Urine RBC (Auto) 5-10 /hpf (0-4) Urine Hyaline Casts (Auto) 5-10 /lpf (0-5) Urine Epithelial Cells (Auto) >30 /lpf (0-5) Urine Bacteria (Auto) NEG (NEG) Urine Yeast (Auto) BUDDING (NONE PRSENT) Urine Test NEG (NEG) Medications Administered Medications (Trade) Dose Ordered Sig/Prasanth Route Start Time Stop Time Status Last Admin Dose Admin Ondansetron HCl (Zofran Inj) 4 mg NOW STAT IV 03/10/17 10:00 03/10/17 10:04 DC 03/10/17 10:30 4 MG Sodium Chloride 1,000 ml @ 999 mls/hr Q1H1M STAT IV 03/10/17 10:00 03/10/17 11:00 DC 03/10/17 10:00 999 MLS/HR Caffeine Citrated 500 mg/Sodium Chloride 1,025 ml @ 512.5 mls/ hr ONE STAT IV 03/10/17 11:35 03/10/17 13:34 DC 03/10/17 11:57 512.5 MLS/HR Ketorolac Tromethamine (Toradol Inj) 15 mg NOW STAT IV 03/10/17 11:39 03/10/17 11:40 DC 03/10/17 11:56 15 MG Medical Decision CC: Patient presenting with complaint of severe headache Interpretation of Labs: No leukocytosis, no anemia, no significant electrolyte abnormalities, normal renal function, normal liver enzymes. UA appears contaminated. Negative urine . Differential Diagnosis: Includes, but not limited to migraine headache, tension headache, spinal headache, dehydration, meningitis, intracranial hemorrhage, among others. Medication Reconciliation: I attest that I have personally reviewed the patient' s current medication list. Vital signs review: I reviewed the patient's vital signs and interpret them as follows: T: Afebrile; BP: Normotensive; HR: Within normal limits; RR: Within normal limits; Pulse Ox: Within normal limits on room air. Blood pressure screening: The patient was found to have normal blood pressure on screening and does not require follow-up for repeat blood pressure check. Summary: Patient was evaluated at bedside, history and physical exam performed. Patient is alert and oriented, in no acute distress, lying flat in the stretcher. Neurologic exam is fully intact, no focal deficits. She has no nuchal rigidity or meningismus. Patient describes her headache as a throbbing pressure, it is worse when she sits up or stands and feels better when she lies down. History significant for a recent lumbar puncture. Orders were placed at bedside for labs, UA, IV fluids for hydration, IV Caffeine to treat for suspected spinal headache. CT head without contrast to evaluate for intracranial abnormality. I did discuss the possibility of a blood patch with the patient, she verbalized understanding. Patient discussed with Dr. Bennett, who agrees with my assessment and plan. Labs reviewed as above, unremarkable with no acute abnormalities. CT imaging is unremarkable. Patient reassessed multiple times throughout ED stay, she states her headache is much improved after caffeine and fluids, now rates her headache as a 3/10. She states she has been up walking around and her headache has not gotten significantly worse and she is feeling much better. She is tolerating oral fluids. She was updated on all results and plan for discharge, she was comfortable with this plan. She was instructed to follow closely with her PCP. She states she has an appointment set up for next week. She was also given strict return precautions should her symptoms worsen, she verbalized understanding. Patient was discharged home in stable condition and ambulatory. Head Trauma GCS Score: 15 Medication Reconcilliation Current Medication List: was personally reviewed by me Blood Pressure Screening Patient's blood pressure: Normal blood pressure Impression Primary Impression: Spinal headache Departure Information Dispostion Home / Self-Care Condition GOOD Referrals [facility] (PCP) Patient Instructions ED Headache Post Spinal Tap No [facility], My [facility] [address] Additional Instructions You have been treated in the emergency department today for your spinal headache. Rest today in a quiet, peaceful, dark environment and get a full 8-10 hrs of sleep tonight. Avoid loud noises, smoke/smoking, alcohol, bright lights, stress, or physical exertion today to minimize the chance the headache may return. Continue current medications as prescribed. Ibuprofen(Motrin, Advil) may be used for fever or pain. Use 600mg every 6-8 hours as needed. Take with food. Avoid using more than 2400mg in a 24 hour period. Do not use 2400mg per day for more than three consecutive days without physician direction. Prolonged inappropriate use can lead to stomach upset or ulcers. (AND/OR) Acetaminophen(Tylenol) may be used for fever or pain. Use 1000mg every 8 hours as needed. Avoid using more than 3000 mg in a 24 hour period. If you continued to have severe headaches return, you may need to come back for a blood patch. Return to the ER for passing out, worsening headache, vision problems, neck stiffness/pain, fevers, vomiting, worsening of your condition, or as needed. Follow up with your primary physician in 2-3 days for a recheck of your current condition.
[2017-03-10 15:16] VITALS: BP 116/55; PULSE 99; O2SAT 98
[2017-03-11] MEDS ORDERED: LEVO75TA PO (22:07)
== END 2017-03-10 15:17 | disposition home or self-care (01) ==
LOC: C.EDB 09:27 → C.EDC 15:17
DX: G97.1 Other reaction to spinal and lumbar puncture (principal); R51 Headache; R56.9 Unspecified convulsions; J45.909 Unspecified asthma, uncomplicated; Z83.3 Family history of diabetes mellitus; Z82.49 Family history of ischemic heart disease and other diseases of the circulatory system; Z82.0 Family history of epilepsy and other diseases of the nervous system

== ENCOUNTER 2017-03-11 21:04 | Emergency (ER) | payer BC ==
[~2017-03-11] VITALS: Ht 160 cm; Wt 52.5 kg
[~2017-03-11 21:04] MED LIST changes: +ACET325T96 PO; +DOXY100C76 PO; -DXY100 PO; +LACT1TAB4 PO; -LCTX PO; -MIRT15TA3 PO; -MRN25 PO
[2017-03-11 21:14] VITALS: TEMP 37; Ht 160 cm; Wt 52.5 kg
[2017-03-11] MEDS ORDERED: METOCLOPRAMIDE HCL INJ 5 MG/ML 2 ML VIAL IV STA (21:42)
[2017-03-11] MEDS ORDERED: KETOROLAC TROMETHAMINE 30 MG/ML VIAL IV STA (21:42)
[2017-03-11] MEDS ORDERED: DiphenhydrAMINE HCL 50 MG/ML VIAL IV STA (21:42)
[2017-03-11] MEDS ORDERED: LEVO75TA PO (22:07)
[2017-03-11 22:25] LABS: BASO % 0.2 %; BASO ABS # 0.01 K/uL (0-0.2); COMPLETE YES; EOS % 1.7 %; HEMATOCRIT 36.4 % (37-47); IG% 0.3 %; LYMPH ABS # 1.96 K/uL (1.2-3.4); MEAN CELL VOLUME 91.5 fL (80-100); MEAN CORPUSCULAR HEMOGLOBIN 30.7 pg (25-34); MEAN CORPUSCULAR HGB CONC 33.5 g/dl (32-36); MEAN PLATELET VOLUME 9.3 fL (7.4-10.4); MONO % 12.1 %; NEUT % 51.7 %; PLATELET COUNT 329 K/uL (130-400); RED BLOOD COUNT 3.98 M/uL (4.2-5.4); WHITE BLOOD COUNT 5.77 K/uL (4.8-10.8)
[2017-03-11 22:42] LABS: PREG INTERNAL NEGATIVE QC NEG CLEAR BACKGROUND; PREG INTERNAL POSITIVE QC POS CONTROL LINE
[2017-03-11 22:44] LABS: BUN/CREATININE RATIO 12.5 (10-20); CALCIUM 8.6 mg/dl (8.5-10.1); CREATININE 0.87 mg/dl (0.60-1.20); POTASSIUM 3.6 mmol/L (3.5-5.1)
[2017-03-11 23:23] VITALS: BP 106/62; PULSE 80; O2SAT 97
--- NOTE | 2017-03-11 23:29 | EMERGENCY ROOM VISIT NOTE ---
History First contact with patient: 21:28 Chief Complaint: HEADACHE Stated Complaint: SEVERE MIGRAINE 1 WK AFTER CAFFEINE IV AND SPINAL History of Present Illness The patient is a 22 year old female who presents to the Emergency Room with complaints of headache today described as throbbing, ranging in severity currently 8 out of 10 throughout her head that is worse with standing and better with laying down. Headache was not sudden in onset. Patient had a spinal tap one week ago for rule out meningitis. She is currently on doxycycline twice a day for possible atypical pneumonia. Patient was seen here the other day for spinal headache. Patient states she's been more stressed with finals and with studying. She states this feels slightly different than the other days headache. Patient denies fevers, loss of vision, chest pain, dyspnea, myalgias, arthralgias, localized weakness, abdominal pain, vomiting, cold symptoms, diarrhea. Review of Systems See HPI for pertinent positives & negatives. A total of 10 systems reviewed and were otherwise negative. Past Medical/Surgical History Medical Problems: (1) Asthma (2) Seizure (3) Sepsis Family History Diabetes mellitus FH: HTN (hypertension) FH: cancer FH: kidney disease FH: lung disease FHx: seizures Heart disease Social History Smoking Status: Never Smoker Alcohol Use: none Drug Use: none Housing Status: lives with roommate Occupation Status: student Current/Historical Medications Scheduled Acetaminophen Tab (Tylenol), 325 MG PO UD Biotin (Biotin 5000), 1 CAP PO HS Budesonide/Formoterol Fumarate (Symbicort 80/4.5 Inhaler), 2 PUFFS INH BID Calcium Carbonate-Cholecalcife (Calcium Plus Vitamin D3), 2 CAP PO DAILY Cetirizine (Zyrtec), 10 MG PO DAILY Cholecalciferol (Vitamin D3), 1 TAB PO DAILY Clonazepam (Klonopin), 0.5 MG PO HS Clonazepam (Klonopin), 1 MG PO UD Doxycycline Monohydrate (Monodox), 100 MG PO BID Levetiracetam (Keppra), 3 TAB PO QAM Levetiracetam (Keppra), 4 TAB PO QPM Levonorgestrel (Iud) (Mirena), 1 UD Levothyroxine Sodium (Synthroid), 75 MCG PO DAILY Montelukast Sodium (Singulair), 1 TAB PO DAILY Multiple Vitamins W/ Minerals (Womens One Daily), 1 TAB PO DAILY Rufinamide (Banzel), 800 MG PO QAM Rufinamide (Banzel), 1,200 MG PO QPM Scheduled PRN Melatonin (Kp Melatonin), 1 TAB PO HS PRN for Sleep Naproxen (Naproxen), 1 TAB PO BID PRN for Pain Polyethylene Glycol 3350 (Miralax), 17 GM PO DAILY PRN for Constipation Physical Exam Vital Signs Date Time Temp Pulse Resp B/P (MAP) Pulse Ox O2 Delivery O2 Flow Rate FiO2 03/11/17 21:14 37.0 86 16 109/49 98 Room Air Physical Exam VITALS: Vitals are noted on the nurse's note and reviewed by myself. Vital signs stable. GENERAL: Pleasant female, in no acute distress, nondiaphoretic, well-developed well-nourished. SKIN: The skin was without rashes, erythema, edema, or bruising. There is no tenting of the skin. Capillary reflex less than 2 seconds. LP incision intact Without signs of infection HEAD: Normocephalic atraumatic. EARS: External auditory canals clear, tympanic membranes pearly mathew without erythema or effusion bilaterally. EYES: Pupils equal round and reactive to light and accommodation. Conjunctivae without injection, sclerae without icterus. Extraocular movements intact. NOSE: Patent, turbinates without inflammation or discharge. No sinus tenderness. MOUTH: Mucous membranes moist. Pharynx without erythema or exudate. Uvula midline. Airway patent. Tongue does not deviate. NECK: Supple without nuchal rigidity. No lymphadenopathy. No thyromegaly. Cervical spine is nontender. No JVD. No meningeal signs HEART: Regular rate and rhythm without murmurs gallops or rubs. LUNGS: Clear to auscultation bilaterally without wheezes, rales or rhonchi. No dullness to percussion. No retractions or accessory muscle use. ABDOMEN: Positive bowel sounds x 4. Normal tympanic percussion. Soft, nontender, without masses or organomegaly. Ram sign negative. No guarding or rebound tenderness. MUSCULOSKELETAL: No muscle atrophy, erythema, or edema noted. NEURO: Patient was alert and oriented to person place and time. Normal sensation to light and sharp touch. No focal neurological deficits. Cranial nerves II-12 grossly intact. No pronator drift. Cerebellar exam intact. Medical Decision & Procedures Laboratory Results 03/11/17 21:55 Red Blood Count 3.98, Mean Corpuscular Volume 91.5, Mean Corpuscular Hemoglobin 30.7, Mean Corpuscular Hemoglobin Concent 33.5, Mean Platelet Volume 9.3, Neutrophils (%) (Auto) 51.7, Lymphocytes (%) (Auto) 34.0, Monocytes (%) (Auto) 12.1, Eosinophils (%) (Auto) 1.7, Basophils (%) (Auto) 0.2, Neutrophils # (Auto ) 2.98, Lymphocytes # (Auto) 1.96, Monocytes # (Auto) 0.70, Eosinophils # (Auto ) 0.10, Basophils # (Auto) 0.01 03/11/17 21:55 Test 03/11/17 21:55 White Blood Count 5.77 K/uL (4.8-10.8) Red Blood Count 3.98 M/uL (4.2-5.4) Hemoglobin 12.2 g/dL (12.0-16.0) Hematocrit 36.4 % (37-47) Mean Corpuscular Volume 91.5 fL (80-100) Mean Corpuscular Hemoglobin 30.7 pg (25-34) Mean Corpuscular Hemoglobin Concent 33.5 g/dl (32-36) Platelet Count 329 K/uL (130-400) Mean Platelet Volume 9.3 fL (7.4-10.4) Neutrophils (%) (Auto) 51.7 % Lymphocytes (%) (Auto) 34.0 % Monocytes (%) (Auto) 12.1 % Eosinophils (%) (Auto) 1.7 % Basophils (%) (Auto) 0.2 % Neutrophils # (Auto) 2.98 K/uL (1.4-6.5) Lymphocytes # (Auto) 1.96 K/uL (1.2-3.4) Monocytes # (Auto) 0.70 K/uL (0.11-0.59) Eosinophils # (Auto) 0.10 K/uL (0-0.5) Basophils # (Auto) 0.01 K/uL (0-0.2) RDW Standard Deviation 42.9 fL (36.4-46.3) RDW Coefficient of Variation 12.8 % (11.5-14.5) Immature Granulocyte % (Auto) 0.3 % Immature Granulocyte # (Auto) 0.02 K/uL (0.00-0.02) Anion Gap 6.0 mmol/L (3-11) Est Creatinine Clear Calc Drug Dose 85.3 ml/min Estimated GFR () 111.1 Estimated GFR (Non- 95.9 BUN/Creatinine Ratio 12.5 (10-20) Calcium Level 8.6 mg/dl (8.5-10.1) Human Chorionic Gonadotropin, Qual NEG (NEG) Medications Administered Medications (Trade) Dose Ordered Sig/Prasanth Route Start Time Stop Time Status Last Admin Dose Admin Ketorolac Tromethamine (Toradol Inj) 30 mg NOW STAT IV 03/11/17 21:42 03/11/17 21:44 DC 03/11/17 21:56 30 MG Metoclopramide HCl (Reglan Inj) 10 mg NOW STAT IV 03/11/17 21:42 03/11/17 21:44 DC 03/11/17 21:56 10 MG Diphenhydramine HCl (Benadryl Inj) 12.5 mg NOW STAT IV 03/11/17 21:42 03/11/17 21:44 DC 03/11/17 21:56 12.5 MG ED Course Prior records/ancillary studies reviewed. Triage Nursing notes reviewed. The patient's history was concerning for headache. Differential diagnosis: Etiologies such as migraine headache, spinal headache, meningitis, sinusitis, CO exposure, ICH, SAH, infection, tumor, headache, sinus thrombosis, arterial dissection, as well as others were entertained. Physical examination findings: As above. Non-focal. ER treatment provided: Toradol, Reglan, Benadryl On reassessment the patient felt better. Diagnostics interpreted by me: The labs revealed no leukocytosis. Negative hCG Imaging studies: HEAD WITHOUT CONTRAST (CT) CT DOSE: 638.56 mGycm HISTORY: Mental status change Evaluate for hemorrhage or pathology TECHNIQUE: Multiaxial CT images of the head were performed without the use of intravenous contrast. A dose lowering technique was utilized adhering to the principles of ALARA. Comparison: None. Findings: The paranasal sinuses and mastoid air cells are clear. The calvarium and skull base are intact. The ventricles and sulci are within normal limits. There is no mass, hematoma, midline shift, or acute infarct. Small focus of encephalomalacia left parietal convexity. No acute intracranial hemorrhage. No midline shift. Impression: No acute process. The above report was generated using voice recognition software. It may contain grammatical, syntax or spelling errors. Electronically signed by: Evens Anderson M.D. Consultation: A consultation was placed with the hospitalist. The case was discussed and diagnostics were reviewed. The patient was evaluated in the ER for further treatment. This appears to be consistent with headache most likely stress and tension related this could also be related to her spinal headache but this is also one week out from her LP. Patient felt 100% after being medicated as above. Her symptoms have resolved. She's been more stressed lately. She is advised to rest, decrease stress, stay well-hydrated and to get 8 hoursof sleep a night. She is advised follow-up with family care in a few days or here in the ER sooner for headache, fevers, weakness, worsening signs or symptoms or as needed. Patient was neurovascularly and neurologically intact. She is well- appearing. No deficits on exam. By the evaluation outlined above emergent etiologies such as meningitis, sinusitis, CO exposure, ICH, SAH, infection, temporal arteritis, tumor, sinus thrombosis, arterial dissection, as well as others were deemed relatively unlikely. The pt informed about the findings as listed above. All questions were answered and pleased with the treatment. Return instructions were outlined and the patient was discharged in stable condition. Referral: The patient was referred back to their primary care physician for follow-up in 2 to 3 days for a recheck of the current condition. Medical Decision As above Medication Reconcilliation Current Medication List: was personally reviewed by me Blood Pressure Screening Patient's blood pressure: Normal blood pressure Impression Primary Impression: Headache Departure Information Dispostion Home / Self-Care Condition GOOD Forms HOME CARE DOCUMENTATION FORM, IMPORTANT VISIT INFORMATION Patient Instructions Headaches Self Care, My [facility] Additional Instructions DO NOT drive, drink alcohol, operate machinery, or perform dangerous activities today. You were given medications in the ER that can affect your ability to safely function or operate a vehicle. Rest today in a quiet, peaceful, dark environment and get a full 8-10 hrs of sleep tonight. Avoid loud noises, smoke/smoking, alcohol, bright lights, stress, or physical exertion today to minimize the chance the headache may return. Continue current medications. Ibuprofen(Motrin, Advil) may be used for fever or pain. Use 600mg every six hours as needed. Take with food. Avoid using more than 2400mg in a 24 hour period. Do not use 2400mg per day for more than three consecutive days without physician direction. Prolonged inappropriate use can lead to stomach upset or ulcers. (AND/OR) Acetaminophen(Tylenol) may be used for fever or pain. Use 1000mg every six hours as needed. Avoid using more than 3000mg in a 24 hour period. Return to the ER for passing out, worsening headache, vision problems, neck stiffness/pain, fevers, vomiting, worsening of your condition, or as needed. Follow up with your primary physician and/or a neurologist in 2-3 days for a recheck of your current condition. Problem Qualifiers Primary Impression: Headache Headache type: unspecified Headache chronicity pattern: acute headache Intractability: not intractable Qualified Codes: R51 - Headache
== END 2017-03-11 23:25 | disposition home or self-care (01) ==
LOC: C.EDB 21:05 → C.EDC 23:25
DX: R51 Headache (principal); J45.909 Unspecified asthma, uncomplicated; R56.9 Unspecified convulsions; Z83.3 Family history of diabetes mellitus; Z82.49 Family history of ischemic heart disease and other diseases of the circulatory system; Z80.9 Family history of malignant neoplasm, unspecified; Z84.1 Family history of disorders of kidney and ureter; Z83.6 Family history of other diseases of the respiratory system; Z79.899 Other long term (current) drug therapy